=== PATIENT | male | born 1985 | race African-American/Black ===

== ENCOUNTER 2019-10-11 10:02 | Emergency (ER) | payer SELFPAY ==
[~2019-10-11] VITALS: Ht 190.5 cm; Wt 90.7 kg
[2019-10-11] MEDS ORDERED: SODIUM CHLORIDE 0.9% 1,000 ML IV ONE ×2 (10:53)
[2019-10-11] MEDS ORDERED: PROCHLORPERAZINE EDISYLATE 5 MG/ML 2ML VIAL IV ONE (11:00)
[2019-10-11 11:42] LABS: Basophils # (auto) 0 uL; Basophils % (auto) 0.8 % (0.0-2.0); Eosinophils # (auto) 0 uL; Eosinophils % (auto) 0.3 % (0.0-7.0); Hematocrit 44.8 % (41.0-53.0); Hemoglobin 15.6 g/dL (13.5-17.5); Lymphocytes # (auto) 0.8 uL; Lymphocytes % (auto) 21.9 % (10.0-50.0); Mean Corpuscular Hemoglobin 32.1 pg (28.0-32.0); Mean Corpuscular Hgb Conc. 34.8 g/dL (32.0-36.0); Mean Corpuscular Volume 92.1 fL (80.0-100.0); Monocytes # (auto) 0.3 uL; Monocytes % (auto) 9.1 % (0.0-12.0); Neutrophils # (auto) 2.6 uL; Neutrophils % (auto) 67.9 % (37.0-80.0); Nucleated Red Blood Cells % 0.2 %; Platelet Count (auto) 172 10^3/uL (140-450); Red Blood Cells 4.86 10^6/uL (4.5-5.90); Red Cell Distribution Width 13.6 % (11.8-14.3); White Blood Cell 3.8 10^3/uL (4.4-10.8)
[2019-10-11 12:04] LABS: Potassium 4.1 mmol/L (3.5-5.1)
[2019-10-11 12:13] LABS: Albumin 4.4 g/dL (3.4-5.0); BUN/Creatinine Ratio 5.5; Bilirubin, Total 1.8 mg/dL (0.2-1.0); Calcium 9.2 mg/dL (8.5-10.1)
[2019-10-11 14:07] VITALS: BP 130/64
== END 2019-10-11 14:24 | disposition home or self-care (01) ==
LOC: ER 10:02
DX: R11.2 Nausea with vomiting, unspecified (principal); F12.10 Cannabis abuse, uncomplicated; F17.210 Nicotine dependence, cigarettes, uncomplicated
CPT/HCPCS: 36415; 80053; 85025; 96361; 96374; 99283; J0780

== ENCOUNTER 2025-04-26 12:41 | Inpatient (IN) | payer MEDICAID, OTHER ==
[~2025-04-26] VITALS: Ht 182.9 cm; Wt 94.1 kg
[2025-04-26] MEDS: SODIUM CHLORIDE 0.9% 1,000 ML IV ONE ×3 (12:45→19:15)
--- NOTE | 2025-04-26 12:59 | ED.PDOC ---
HPI (NEURO) HPI Comments HPI: This is a 39 year old male EMMANUELA presenting to the ED with chief complaint of seizure. EMS reports that the patient was found on the ground seizing by nephews and mother. EMS relays that the patient had some noted oral trauma and now left sided neck pain. EMS states that the patient has no history of seizures and is not currently on any medication. Patient's BG on scene was 98. Patient denies any chest pain, SOB, head injury, N/V, headache, or dizziness. Initial Vitals BP: 144/82 HR: 84 RR: 20 O2 Sat: 100% on RA Temp: 98.6F Past Medical history: None Past Surgical history: None Medications: None Social History: Cigarette use, occasional ETOH use, Marijuana use Allergies: NKDA HPI: Poor Historian. Patient arrived without a C-collar. I placed him in a C-collar immediately. REVIEW OF SYSTEMS: CONSTITUTIONAL: Denies acute: fever, diaphoresis, chills, HEAD: Denies acute: headache, photophobia Eyes: Denies acute: Double vision, vision loss, eye pain, eye discharge. EARS: Denies acute: tinnitus, hearing loss, ear discharge, ear pain, THROAT: Denies acute: sore throat, swelling, difficulty swallowing , pain with swallowing, change in voice. NECK: Denies acute: neck swelling, stiff neck. HEART: Denies acute : chest pain, palpitations, LUNGS: Denies acute: SOB, wheezing, cough, hemoptysis ABDOMEN: Denies acute: abdominal pain, Nausea, Vomiting, diarrhea, melena , hematemesis, hematochezia SKIN: Denies acute: rash, redness, lesions, itchiness. EXTREMITIES: Denies acute: calf pain, numbness, tingling, weakness, denies pain in extremity. Denies acute: Low back pain. Neuro: Denies acute: focal neurological deficit, motor or sensory focal neurological deficit, dizziness, change in mental status, loss of bowel or bladder function, cauda equina like symptoms. : Denies acute: dysuria, hematuria, flank pain, increase in urinary frequency. PSYCH: Denies acute: hallucination, suicidal ideation, homicidal ideation. PHYSICAL EXAM: General: ----qqhe-ah-oawxcjat----acute distress, awake and alert. Head: normocephalic, atraumatic. Neck: supple, trachea is midline, no swelling. Patient complains of left neck soreness and pain from the fall. Started this morning. Throat: Normal phonation. Noted tip of the tongue contusion. No active bleeding. No erythema, no swelling, no obstruction. Eyes:, no erythema, no purulent discharge, no proptosis, no icterus. Heart: regular rate, regular rhythm, no significant murmur appreciated. Lungs: no apparent respiratory distress, Able to speak in full sentences. No wheezing, no rhonchi, no crackles. No stridors Clear to auscultation bilaterally. Abdomen: non tender to palpation, non distended, soft, no guarding, no rebound, + bowel sounds. Neuro: Awake, Alert, oriented to name, self, situation, follows commands GCS=15. Speech is normal. Skin: no petechia, no purpura, no cyanosis, non-pale, not jaundice. Lower extremities: --no - Pitting edema no deformity, no focal swelling, no calf TTP. Makes eye contact. moves all four extremities. Face: no apparent facial droop. PERRLA, EOM-I CN 2-12 are grossly intact, No nystagmus. No nuchal rigidity, Kernig's sign, Brudzinski's sign, no meningeal signs. ED COURSE: DISCLAIMER: This medical document was created using an electronic medical record system with voice recognition software and computerized dictation system. Although this document has been carefully reviewed, there might still be some phonetic and typographical errors. Occasional wrong-word or "sound-alike" substitutions may have occurred due to the inherent limitations of voice recognition software. These areas are purely typographical due to imperfections of the software programs and do not reflect any compromise in the patient's medical care. Please read the chart carefully and recognize, using context, where these substitutions have occurred. Time Seen by MD: 12:48 Primary Care Provider: unknown Reviewed Notes: Medications, Allergies Information Source: Patient, Emergency Med Personnel Mode of Arrival: EMS Was a procedure done? Was a procedure done?: No Differential Diagnosis (SZ) Seizure: Other (SEIZUREDDX include not limited to CVA, cerebellar ischemia/infarct, carotid stenosis, vertebral/carotid artery dissection,, sanchez tebrobasillary insufficiency, Intracranial mass/infection/bleed, encephalopathy, elctrolyte abnormality, thyroid disease, multiple sclerosis, hypoglycemia, drug toxicity, cardiac arrhythmia, sub-theraputic anti-convulsion medications, known seizure disorder, pseudo-seizure.) X-Ray, Labs, Meds, VS Vital Signs Date Time Temp Pulse Resp B/P (MAP) Pulse Ox O2 Delivery O2 Flow Rate FiO2 04/26/25 14:07 97.5 57 16 123/66 (85) 100 97.5 04/26/25 14:07 57 16 100 Room Air* 0 21 04/26/25 13:21 98.6 84 20 144/82 (102) 100 98.6 Lab Test 04/26/25 13:39 04/26/25 12:56 Range/Units Troponin I High Sensitivity 22 22 </=54 ng/L White Blood Count 5.6 4.4-10.8 10^3/uL Red Blood Count 5.01 4.5-5.90 10^6/uL Hemoglobin 15.5 13.5-17.5 g/dL Hematocrit 46.7 41.0-53.0 % Mean Corpuscular Volume 93.3 80.0-100.0 fL Mean Corpuscular Hemoglobin 31.0 28.0-32.0 pg Mean Corpuscular Hemoglobin Concent 33.2 32.0-36.0 g/dL Red Cell Distribution Width 14.4 H 11.8-14.3 % Platelet Count 273 140-450 10^3/uL Mean Platelet Volume 8.3 6.9-10.8 fL Neutrophils (%) (Auto) 37.0-80.0 % Lymphocytes (%) (Auto) 10.0-50.0 % Monocytes (%) (Auto) 0.0-12.0 % Basophils (%) (Auto) 0.0-2.0 % Neutrophils # (Auto) 1.6-8.6 10 ^3/uL Lymphocytes # (Auto) 0.4-5.4 10 ^3/uL Monocytes # (Auto) 0-1.3 10 ^3/uL Differential Total Cells Counted 100.0 100 Neutrophils % (Manual) 29 L 37.0-80.0 Band Neutrophils % (Manual) 0 Lymphocytes % (Manual) 55 H 10.0-50.0 Monocytes % (Manual) 8 0-12 Eosinophils % (Manual) 3 0-7 Basophils % (Manual) 0 0.0-2.0 Metamyelocytes % (manual) 0 Myelocytes % (Manual) 0 Promyelocytes % (Manual) 0 Blast Cells % (Manual) 0 Reactive Lymphocytes 5 Platelet Estimate Adequate Red Blood Cell Morphology Normal Sodium Level 137 136-145 mmol/L Potassium Level 4.3 3.5-5.1 mmol/L Chloride Level 104 98-107 mmol/L Carbon Dioxide Level 21 20-31 mmol/L Anion Gap 12 5-15 Blood Urea Nitrogen 10 9-23 mg/dL Creatinine 1.32 H 0.700-1.30 mg/dL Glomerular Filtration Rate Calc 71 >90 mL/min BUN/Creatinine Ratio 7.6 L 10.0-20.0 Serum Glucose 130 H 74-106 mg/dL Lactic Acid Level 7.3 *H 0.4-2.0 mmol/L Calcium Level 10.0 8.7-10.4 mg/dL Magnesium Level 2.6 1.6-2.6 mg/dL Total Bilirubin 1.7 H 0.2-1.0 mg/dL Aspartate Amino Transferase (AST) 22 13-40 U/L Alanine Aminotransferase (ALT) 19 7-40 U/L Alkaline Phosphatase 70 46-116 U/L Creatine Kinase 296 H 46-171 U/L Total Protein 7.6 5.7-8.2 g/dL Albumin 4.9 H 3.2-4.8 g/dL Plasma/Serum Blood Alcohol < 3.0 <10 mg/dL [place] [id number] Ph: [phone] DIAGNOSTIC IMAGING Diagnostic Imaging Report : [id number] Signed PATIENT: MO MIMS ACCT: [id number] UNIT: [id number] : 1985 LOC: ER ROOM / BED: / AGE / SEX: 39 / M ADM STATUS: REG ER SERVICE 1244 ORDERING PHYSICIAN: OTONIEL VENEGAS DO PROCEDURE(s): CS2 - CERVICAL WITHOUT CONTRAST REASON: seizure ORDER NUMBER(s): [id number], ACCESSION NUMBER(s): [id number] EXAM: CT CERVICAL WITHOUT CONTRAST INDICATION: seizure EXAM DATE: 04/26/2025 01:09 PM COMPARISON: None TECHNIQUE: Multiple axial CT images of the cervical spine were obtained using bone algorithm. Axial and coronal reformatting was done. Bone and soft tissue windows were reviewed. Radiation Dose Information: CT Dose: CTDI volume is 22.58 mGy. Dose-length product is 1956.69 mGy*cm FINDINGS: 7 zar-tmo-wpgsobk cervical type vertebra. Motion artifact limits evaluation of the spinous processes of C7 and T1. Otherwise, no evidence of acute traumatic fractures or spondylolisthesis. Multilevel oral spinal canal stenosis with calcification of the Posterior disc and C4-C5 and C5-C6. Qlfh-st-wpupbbwf left-sided neural foramina stenosis at C3-C4 and C4-C5. Soft tissues unremarkable. Thyroid gland is unremarkable. The lung apices are clear. IMPRESSION: Motion artifact limits evaluation of the spinous processes of C7 and TOtherwise, No evidence of acute cervical spine fracture or traumatic malalignment. All CT scans at this medical facility are performed using dose modulation techniques as appropriate to a performed exam including the following: Automated exposure control was utilized; adjustment of the MA and/or KV according to patient size; and use of iterative reconstruction technique. ATED BY: CHARLOTTE FRAZIER DO DICTATED DATE/TIME: 04/26/251354 SIGNED BY: CHARLOTTE FRAZIER DO SIGNED DATE/TIME: 04/26/251354 CC: [place] [id number] Ph: [phone] DIAGNOSTIC IMAGING Diagnostic Imaging Report : [id number] Signed PATIENT: MO MIMS ACCT: [id number] UNIT: [id number] : 1985 LOC: ER ROOM / BED: / AGE / SEX: 39 / M ADM STATUS: REG ER SERVICE 1244 ORDERING PHYSICIAN: OTONIEL VENEGAS DO PROCEDURE(s): HWOCT - HEAD WITHOUT CONTRAST REASON: seizure ORDER NUMBER(s): [id number], ACCESSION NUMBER(s): [id number] EXAM: CT HEAD WITHOUT CONTRAST INDICATION: seizure TECHNIQUE: CT of the head without intravenous contrast. Radiation Dose : 1. Head: CT Dose: CTDI volume is 23 mGy. Dose-length product is 1957 mGy*cm The dose indicators for CT are the volume Computed Tomography (CT) Dose Index (CTDIvol) and the Dose Length Product (DLP), and are measured in units of mGy and mGy-cm, respectively. These indicators are not patient dose, but values generated from the CT scanner acquisition factors. The report includes radiation exposure data for exposures received during this examination. COMPARISON: None FINDINGS: There is no evidence of acute intracranial hemorrhage, extra-axial collection, mass effect, midline shift, herniation or hydrocephalus. The ventricles, sulci and cisterns are age appropriate. The lanza-white differentiation is intact. Patchy periventricular and subcortical white matter hypoattenuation is nonspecific but may be related to small vessel ischemic disease. The visualized paranasal sinuses and mastoid air cells are clear. The surrounding soft tissues and osseous structures are unremarkable. IMPRESSION: 1. No acute intracranial abnormality. Radiation optimization: All CT scans at this facility use at least one of these dose optimization techniques: automated exposure control mA and/or kV adjustment per patient size (includes targeted exams where dose is matched to clinical indication) or iterative reconstruction. ATED BY: TIERA ELAINE MD DICTATED DATE/TIME: 04/26/251337 SIGNED BY: TIERA ELAINE MD SIGNED DATE/TIME: 04/26/251337 CC: [place] [id number] Ph: [phone] DIAGNOSTIC IMAGING Diagnostic Imaging Report : [id number] Signed PATIENT: MO MIMS ACCT: [id number] UNIT: [id number] : 1985 LOC: ER ROOM / BED: / AGE / SEX: 39 / M ADM STATUS: REG ER SERVICE 1244 ORDERING PHYSICIAN: OTONIEL VENEGAS DO PROCEDURE(s): CXRP - CHEST PORTABLE REASON: seizure ORDER NUMBER(s): [id number], ACCESSION NUMBER(s): [id number] INDICATION: seizure TECHNIQUE: Frontal view of the chest. COMPARISON: None FINDINGS: . The heart and mediastinal contours are grossly unremarkable. There is no evidence of pleural disease. The lungs are clear. The bony structures of the chest are intact without fracture. IMPRESSION: 1. No evidence of acute disease. ATED BY: KAYLEE BATES MD DICTATED DATE/TIME: 04/26/25 1340 SIGNED BY: KAYLEE BATES MD SIGNED DATE/TIME: 04/26/25 1340 CC: Time of 1ST Reevaluation: 13:48 Reevaluation 1ST: Unchanged Patient Education/Counseling: Diagnosis, Treatment Family Education/Counseling: No Family Present Comments Patient was placed on a C-collar. MDM: patient presented with the above HPI.--new onset seizure---workup was initiated. patient was found with the above mentioned diagnosis. the following medications were ordered: please refer to order lists of meds and tests obtained by myself Dr. Venegas. Patient ED course and VS have been stabilized. Patient has been reassessed in the ED and remained in a stable condition. Pertinent incidental findings were discussed with the patient and/or family. Patient/family voices understanding and is agreeable with plan. Patient has been observed in the ED adequate length of time to insure improvement/stability. Escalation of care considered: Consideration of escalation to observation or admission Patient was ADMITTED to the medicine team for further evaluation and treatment of their presentation. All the reports of any imaging studies that were ordered by myself were reviewed by myself. Departure 1 Departure Time of Disposition: 14:09 Impression: Primary Impression: Seizure Additional Impression: Neck pain Disposition: 09 ADMITTED INPATIENT Admit to: Tele Condition: Guarded e-Prescriptions No Active Prescriptions or Reported Meds Discharged With: Self Critical Care Note Critical Care Time?: Yes (45 min-critical care time only) I personally scribed for OTONIEL VENEGAS DO ([email or web address]) on 04/26/25 at 12:59. Electronically submitted by Joaquin Chavez ([email or web address]). I personally scribed for OTONIEL VENEGAS DO ([email or web address]) on 04/26/25 at 14:37. Electronically submitted by Joaquin Chavez ([email or web address]). OTONIEL VENEGAS DO Apr 26, 2025 12:59
[2025-04-26 13:23] LABS: Hematocrit 46.7 % (41.0-53.0); Hemoglobin 15.5 g/dL (13.5-17.5); Mean Corpuscular Hemoglobin 31.0 pg (28.0-32.0); Mean Corpuscular Volume 93.3 fL (80.0-100.0)
[2025-04-26 13:38] LABS: Alanine Aminotransferase 19 U/L (7-40); Alkaline Phosphatase 70 U/L (46-116); Anion Gap 12 (5-15); BUN/Creatinine Ratio 7.6 (10.0-20.0); Blood Urea Nitrogen 10 mg/dL (9-23); Calcium 10.0 mg/dL (8.7-10.4); Carbon Dioxide 21 mmol/L (20-31); Chloride 104 mmol/L (98-107); Magnesium 2.6 mg/dL (1.6-2.6); Potassium 4.3 mmol/L (3.5-5.1); Sodium 137 mmol/L (136-145); Total Protein 7.6 g/dL (5.7-8.2)
[2025-04-26 13:41] LABS: Albumin 4.9 g/dL (3.2-4.8); Bilirubin, Total 1.7 mg/dL (0.2-1.0); Creatine Kinase IFCC 296 U/L (46-171); Glucose 130 mg/dL (74-106)
--- NOTE | 2025-04-26 13:41 | DVH ---
EXAM: CT HEAD WITHOUT CONTRAST INDICATION: seizure TECHNIQUE: CT of the head without intravenous contrast. Radiation Dose : 1. Head: CT Dose: CTDI volume is 23 mGy. Dose-length product is 1957 mGy*cm The dose indicators for CT are the volume Computed Tomography (CT) Dose Index (CTDIvol) and the Dose Length Product (DLP), and are measured in units of mGy and mGy-cm, respectively. These indicators are not patient dose, but values generated from the CT scanner acquisition factors. The report includes radiation exposure data for exposures received during this examination. COMPARISON: None FINDINGS: There is no evidence of acute intracranial hemorrhage, extra-axial collection, mass effect, midline s hift, herniation or hydrocephalus. The ventricles, sulci and cisterns are age appropriate. The lanza-white differentiation is intact. Patchy periventricular and subcortical white matter hypoattenuation is nonspecific but may be related to small vessel ischemic disease. The visualized paranasal sinuses and mastoid air cells are clear. The surrounding soft tissues and osseous structures are unremarkable. IMPRESSION: 1. No acute intracranial abnormality. Radiation optimization: All CT scans at this facility use at least one of these dose optimization joslyn hniques: automated exposure control mA and/or kV adjustment per patient size (includes targeted exam s where dose is matched to clinical indication) or iterative reconstruction.
--- NOTE | 2025-04-26 13:42 | DVH ---
INDICATION: seizure TECHNIQUE: Frontal view of the chest. COMPARISON: None FINDINGS: . The heart and mediastinal contours are grossly unremarkable. There is no evidence of pleural disea se. The lungs are clear. The bony structures of the chest are intact without fracture. IMPRESSION: 1. No evidence of acute disease.
[2025-04-26 13:58] LABS: Lactic Acid w/Reflex 7.3 mmol/L (0.4-2.0)
--- NOTE | 2025-04-26 13:58 | DVH ---
EXAM: CT CERVICAL WITHOUT CONTRAST INDICATION: seizure EXAM DATE: 04/26/2025 01:09 PM COMPARISON: None TECHNIQUE: Multiple axial CT images of the cervical spine were obtained using bone algorithm. Axial a nd coronal reformatting was done. Bone and soft tissue windows were reviewed. Radiation Dose Information: CT Dose: CTDI volume is 22.58 mGy. Dose-length product is 1956.69 mGy*cm FINDINGS: 7 aju-hfe-bmfcoau cervical type vertebra. Motion artifact limits evaluation of the spinous processes of C7 and T1. Otherwise, no evidence of acute traumatic fractures or spondylolisthesis. Multilevel oral spinal canal stenosis with calcification of the Posterior disc and C4-C5 and C5-C6. Kewi-yw-fsnzfvtd left-sided neural foramina stenosis at C3-C4 and C4-C5. Soft tissues unremarkable. Thyroid gland is unremarkable. The lung apices are clear. IMPRESSION: Motion artifact limits evaluation of the spinous processes of C7 and TOtherwise, No evidence of acute cervical spine fracture or traumatic malalignment. All CT scans at this medical facility are performed using dose modulation techniques as appropriate t o a performed exam including the following: Automated exposure control was utilized; adjustment of th e MA and/or KV according to patient size; and use of iterative reconstruction technique.
[2025-04-26 14:07] VITALS: PULSE 57; RESP 16; O2SAT 100
[2025-04-26 14:22] LABS: Total Cells Counted 100.0 (100)
[2025-04-26 14:23] LABS: RBC Morphology Normal
[2025-04-26] MEDS ORDERED: LORazepam 2MG/ML-1ML VIAL IV PRN (14:45)
[2025-04-26] MEDS: HYDROcodone-ACET 5/325MG TAB PO PRN (15:18)
[2025-04-26] MEDS: ACETAMINOPHEN 325 MG TAB PO PRN (16:20)
[2025-04-26 18:32] VITALS: BP 110/66; PULSE 60; RESP 16; TEMP 97.9; O2SAT 99
--- NOTE | 2025-04-26 19:13 | DVHHP2 ---
History of Present Illness Reason for Visit: Seizure activity History of Present Illness 39-year-old male presents for evaluation of seizure activity. Patient is currently lethargic oriented x4. He does not recall how he ended up in the hospital. Per ED records and personnel patient was found seizing by his mother and nephews. There is some mild oral trauma. Patient reports mild neck pain. No headache. No cardiac or respiratory complaints. Past Medical History None Past Surgical History None Family History Noncontributory Smoke: 1 pack per day ALCOHOL: none Lives: with Family Review of Systems Review of Systems Review of systems are currently negative otherwise addressed in HPI. Allergies: Coded Allergies: NO KNOWN ALLERGIES (Unverified , 10/11/19) Medications Current Medications Medications Dose Ordered Sig/Luis Armando Route Start Time Stop Time Status Last Admin Dose Admin Lorazepam 1 mg Q5MINP PRN IV 04/26/25 14:45 Acetaminophen/ Hydrocodone Bitart 1 tab Q4HP PRN PO 04/26/25 14:45 Temazepam 15 mg QHSP PRN PO 04/26/25 14:45 Ondansetron HCl 4 mg Q4HP PRN IV 04/26/25 14:45 Acetaminophen 650 mg Q6HP PRN PO 04/26/25 14:45 04/26/25 16:20 650 MG Exam Vital Signs Vital Signs Date Time Temp Pulse Resp B/P (MAP) Pulse Ox O2 Delivery O2 Flow Rate FiO2 04/26/25 14:07 97.5 57 16 123/66 (85) 100 97.5 04/26/25 14:07 Room Air* 0 21 Exam Gen: 39-year-old male in no apparent distress Skin: Warm, dry, normal color and texture, no rash. HEENT: Normocephalic atraumatic, mucous membranes moist and pink. Neck: Cervical and supraclavicular nodes normal without enlargement, trachea is midline, thyroid gland is normal without masses. Pulmonary: Clear to auscultation and percussion bilaterally. Cardiac: Regular rate and rhythm. No murmur Abdomen: Soft, nontender, nondistended, bowel sounds present all 4 quadrants, no guarding, no rigidity, no organomegaly. Extremities: No cyanosis, clubbing, no edema Neuro: Cranial nerves II through XII grossly intact, normal affect and speech, no focal motor deficits. Labs/Xrays ORDERING PHYSICIAN: OTONIEL VENEGAS DO PROCEDURE(s): CS2 - CERVICAL WITHOUT CONTRAST REASON: seizure ORDER NUMBER(s): [id number], ACCESSION NUMBER(s): [id number] EXAM: CT CERVICAL WITHOUT CONTRAST INDICATION: seizure EXAM DATE: 04/26/2025 01:09 PM COMPARISON: None TECHNIQUE: Multiple axial CT images of the cervical spine were obtained using bone algorithm. Axial and coronal reformatting was done. Bone and soft tissue windows were reviewed. Radiation Dose Information: CT Dose: CTDI volume is 22.58 mGy. Dose-length product is 1956.69 mGy*cm FINDINGS: 7 [id number] cervical type vertebra. Motion artifact limits evaluation of the spinous processes of C7 and T1. Otherwise, no evidence of acute traumatic fractures or spondylolisthesis. Multilevel oral spinal canal stenosis with calcification of the Posterior disc and C4-C5 and C5-C6. [id number] left-sided neural foramina stenosis at C3-C4 and C4-C5. Soft tissues unremarkable. Thyroid gland is unremarkable. The lung apices are clear. IMPRESSION: Motion artifact limits evaluation of the spinous processes of C7 and TOtherwise, No evidence of acute cervical spine fracture or traumatic malalignment. All CT scans at this medical facility are performed using dose modulation techniques as appropriate to a performed exam including the following: Automated exposure control was utilized; adjustment of the MA and/or KV according to patient size; and use of iterative reconstruction technique. ATED BY: CHARLOTTE FRAZIER DO DICTATED DATE/TIME: 04/26/25 1355 ORDERING PHYSICIAN: OTONIEL VENEGAS DO PROCEDURE(s): CXRP - CHEST PORTABLE REASON: seizure ORDER NUMBER(s): [id number], ACCESSION NUMBER(s): [id number] INDICATION: seizure TECHNIQUE: Frontal view of the chest. COMPARISON: None FINDINGS: . The heart and mediastinal contours are grossly unremarkable. There is no evidence of pleural disease. The lungs are clear. The bony structures of the chest are intact without fracture. IMPRESSION: 1. No evidence of acute disease. RING PHYSICIAN: OTONIEL VENEGAS DO PROCEDURE(s): HWOCT - HEAD WITHOUT CONTRAST REASON: seizure ORDER NUMBER(s): [id number], ACCESSION NUMBER(s): [id number] EXAM: CT HEAD WITHOUT CONTRAST INDICATION: seizure TECHNIQUE: CT of the head without intravenous contrast. Radiation Dose : 1. Head: CT Dose: CTDI volume is 23 mGy. Dose-length product is 1957 mGy*cm The dose indicators for CT are the volume Computed Tomography (CT) Dose Index (CTDIvol) and the Dose Length Product (DLP), and are measured in units of mGy and mGy-cm, respectively. These indicators are not patient dose, but values generated from the CT scanner acquisition factors. The report includes radiation exposure data for exposures received during this examination. COMPARISON: None FINDINGS: There is no evidence of acute intracranial hemorrhage, extra-axial collection, mass effect, midline shift, herniation or hydrocephalus. The ventricles, sulci and cisterns are age appropriate. The lanza-white differentiation is intact. Patchy periventricular and subcortical white matter hypoattenuation is nonspecific but may be related to small vessel ischemic disease. The visualized paranasal sinuses and mastoid air cells are clear. The surrounding soft tissues and osseous structures are unremarkable. IMPRESSION: 1. No acute intracranial abnormality. Radiation optimization: All CT scans at this facility use at least one of these dose optimization techniques: automated exposure control mA and/or kV adjustment per patient size (includes targeted exams where dose is matched to clinical indication) or iterative reconstruction. Labs Test 04/26/25 15:45 04/26/25 12:56 Range/Units Lactic Acid Level 3.4 *H 0.4-2.0 mmol/L Troponin I High Sensitivity 25 </=54 ng/L White Blood Count 5.6 4.4-10.8 10^3/uL Red Blood Count 5.01 4.5-5.90 10^6/uL Hemoglobin 15.5 13.5-17.5 g/dL Hematocrit 46.7 41.0-53.0 % Mean Corpuscular Volume 93.3 80.0-100.0 fL Mean Corpuscular Hemoglobin 31.0 28.0-32.0 pg Mean Corpuscular Hemoglobin Concent 33.2 32.0-36.0 g/dL Red Cell Distribution Width 14.4 H 11.8-14.3 % Platelet Count 273 140-450 10^3/uL Mean Platelet Volume 8.3 6.9-10.8 fL Neutrophils (%) (Auto) 37.0-80.0 % Lymphocytes (%) (Auto) 10.0-50.0 % Monocytes (%) (Auto) 0.0-12.0 % Basophils (%) (Auto) 0.0-2.0 % Neutrophils # (Auto) 1.6-8.6 10 ^3/uL Lymphocytes # (Auto) 0.4-5.4 10 ^3/uL Monocytes # (Auto) 0-1.3 10 ^3/uL Differential Total Cells Counted 100.0 100 Neutrophils % (Manual) 29 L 37.0-80.0 Band Neutrophils % (Manual) 0 Lymphocytes % (Manual) 55 H 10.0-50.0 Monocytes % (Manual) 8 0-12 Eosinophils % (Manual) 3 0-7 Basophils % (Manual) 0 0.0-2.0 Metamyelocytes % (manual) 0 Myelocytes % (Manual) 0 Promyelocytes % (Manual) 0 Blast Cells % (Manual) 0 Reactive Lymphocytes 5 Platelet Estimate Adequate Red Blood Cell Morphology Normal Sodium Level 137 136-145 mmol/L Potassium Level 4.3 3.5-5.1 mmol/L Chloride Level 104 98-107 mmol/L Carbon Dioxide Level 21 20-31 mmol/L Anion Gap 12 5-15 Blood Urea Nitrogen 10 9-23 mg/dL Creatinine 1.32 H 0.700-1.30 mg/dL Glomerular Filtration Rate Calc 71 >90 mL/min BUN/Creatinine Ratio 7.6 L 10.0-20.0 Serum Glucose 130 H 74-106 mg/dL Calcium Level 10.0 8.7-10.4 mg/dL Magnesium Level 2.6 1.6-2.6 mg/dL Total Bilirubin 1.7 H 0.2-1.0 mg/dL Aspartate Amino Transferase (AST) 22 13-40 U/L Alanine Aminotransferase (ALT) 19 7-40 U/L Alkaline Phosphatase 70 46-116 U/L Creatine Kinase 296 H 46-171 U/L Total Protein 7.6 5.7-8.2 g/dL Albumin 4.9 H 3.2-4.8 g/dL Plasma/Serum Blood Alcohol < 3.0 <10 mg/dL SEPSIS Sepsis Screen Date sepsis recognized/suspect: Apr 26, 2025 Time Sepsis recognized/suspect: 1406 Recent Procedure: No On Antibiotic Therapy: No Respiratory Rate >20: No Heart Rate >90: No Temp<36 C (96.8 F) or >38.3 C: No SBP <90 or MAP <65 mmHG: No New Acute Mental Status Change: No Is the patient on CPAP, BIPAP,: No Physician Orders [employer] (04/26/25 ) Seizure Precautions (04/26/25 ) Drug Screen (04/26/25 12:44) Urinalysis (04/26/25 12:44) Chest Portable (04/26/25 12:44) Electrocardigram (04/26/25 12:44) Cervical Without Contrast (04/26/25 12:44) Head Without Contrast (04/26/25 12:44) Apply Soft Cervical Collar (04/26/25 12:44) Seizure Precautions (04/26/25 ) * Neurology Consult (04/26/25 14:42) Lorazepam 2mg/Ml Inj (Ativan Inj) (04/26/25 14:45) Regular Diet (04/26/25 Dinner) Admit (04/26/25 14:42) Hydrocodone-Acet 5/325mg Tab (Story (04/26/25 14:45) Temazepam (Restoril) (04/26/25 14:45) Ondansetron Hcl (Zofran) (04/26/25 14:45) Comprehensive Metabolic Panel (04/27/25 04:00) Condition: Stable (04/26/25 14:42) Acetaminophen Tablet (Tylenol Tablet) (04/26/25 14:45) Bedrest With Bathroom Privileg (04/26/25 14:42) Vital Signs Date Time Temp Pulse Resp B/P (MAP) Pulse Ox O2 Delivery O2 Flow Rate FiO2 04/26/25 14:07 97.5 57 16 123/66 (85) 100 97.5 04/26/25 14:07 57 16 100 Room Air* 0 21 04/26/25 13:21 98.6 84 20 144/82 (102) 100 98.6 Laboratory Tests Test 04/26/25 12:56 04/26/25 15:45 Lactic Acid Level 7.3 mmol/L (0.4-2.0) *H 3.4 mmol/L (0.4-2.0) *H White Blood Count 5.6 10^3/uL (4.4-10.8) Medications Medications Dose Ordered Sig/Luis Armando Route Start Time Stop Time Status Last Admin Dose Admin Acetaminophen 650 mg Q6HP PRN PO 04/26/25 14:45 04/26/25 16:20 650 MG Sodium Chloride 1,000 ml @ 1,000 mls/hr Q1H ONCE IV 04/26/25 12:45 04/26/25 13:44 DC 04/26/25 12:45 1,000 MLS/HR Sodium Chloride 1,000 ml @ 1,000 mls/hr Q1H ONCE IV 04/26/25 14:45 04/26/25 15:44 DC 04/26/25 15:18 1,000 MLS/HR Assessment/Plan Assessment/Plan Assessment Seizure activity, new onset Acute kidney injury ? Early rhabdomyolysis Plan Admit the patient to [facility] to the hospitalist Seizure precautions in place Nephrology consultation IV fluids Continue treatment per orders. Plan discussed with: Patient My Orders Orders - TRAMAINE ALEGRIA Procedure Category Date Status Time Seizure Precautions ED NURSING 04/26/25 Transmitted * Neurology Consult CONS 04/26/25 Transmitted 14:42 Lorazepam 2mg/Ml Inj PHA 04/26/25 In Process (Ativan Inj) 14:45 Regular Diet DIET 04/26/25 Transmitted Dinner Admit ADMIT 04/26/25 Transmitted 14:42 Hydrocodone-Acet PHA 04/26/25 In Process 5/325mg Tab (Story 14:45 Temazepam (Restoril) PHA 04/26/25 In Process 14:45 Ondansetron Hcl PHA 04/26/25 In Process (Zofran) 14:45 Comprehensive LAB 04/27/25 Verified Metabolic Panel 04:00 Condition: Stable YEYO 04/26/25 In Process 14:42 Acetaminophen Tablet PHA 04/26/25 In Process (Tylenol Tablet) 14:45 Bedrest With Bathroom YEYO 04/26/25 In Process Privileg 14:42 Date of Service: Apr 26, 2025 Billing Provider: TRAMAINE ALEGRIA Common Visit Codes: [id number] INP/OBS CARE (HIGH) TRAMAINE ALEGRIA [facility] Apr 26, 2025 19:13
[2025-04-26 20:00] VITALS: PULSE 60; PULSE 68; RESP 18; O2SAT 99
[2025-04-26 21:00] VITALS: BP 104/61; PULSE 60; RESP 18; O2SAT 99
[2025-04-26] MEDS: ONDANSETRON HCL 4 MG/2 ML VIAL IV PRN (21:06)
[2025-04-26] MEDS: TEMAZEPAM 15 MG CAP PO PRN (21:23)
[2025-04-27] VITALS (9 sets, daily range): BP systolic 107–126; BP diastolic 57–73; PULSE 21–77; RESP 16–18; TEMP 96.8–98.5; O2SAT 94–100
[2025-04-27 07:30] LABS: Alanine Aminotransferase 16 U/L (7-40); Alkaline Phosphatase 63 U/L (46-116); Anion Gap 9 (5-15); BUN/Creatinine Ratio 6.3 (10.0-20.0); Calcium 8.8 mg/dL (8.7-10.4); Carbon Dioxide 22 mmol/L (20-31); Glucose 95 mg/dL (74-106); Potassium 4.2 mmol/L (3.5-5.1); Sodium 138 mmol/L (136-145)
[2025-04-27 07:31] LABS: Total Protein 6.5 g/dL (5.7-8.2)
[2025-04-27 07:32] LABS: Albumin 4.1 g/dL (3.2-4.8)
[2025-04-27 07:35] LABS: Bilirubin, Total 2.5 mg/dL (0.2-1.0); Blood Urea Nitrogen 6 mg/dL (9-23); Chloride 107 mmol/L (98-107)
--- NOTE | 2025-04-27 13:20 | DVHPN2 ---
Reviewed: Care Plan, H&P, Labs, Medications, Previous Orders, Radiology Changes from previous H/P or p: No Changes Objective Vitals Vital Signs Date Time Temp Pulse Resp B/P (MAP) Pulse Ox O2 Delivery O2 Flow Rate FiO2 04/27/25 09:00 97.8 65 18 109/65 (80) 98 97.8 04/27/25 08:00 Room Air* 0 21 Intake/Output Intake and Output 04/27/25 07:00 Intake Total 2605 ml Balance 2605 ml Intake Oral 605 ml IV Total 2000 ml Medications Current Medications Medications Dose Ordered Sig/Luis Armando Route Start Time Stop Time Status Last Admin Dose Admin Lorazepam 1 mg Q5MINP PRN IV 04/26/25 14:45 Acetaminophen/ Hydrocodone Bitart 1 tab Q4HP PRN PO 04/26/25 14:45 Temazepam 15 mg QHSP PRN PO 04/26/25 14:45 04/26/25 21:23 15 MG Ondansetron HCl 4 mg Q4HP PRN IV 04/26/25 14:45 04/26/25 21:06 4 MG Acetaminophen 650 mg Q6HP PRN PO 04/26/25 14:45 04/27/25 12:35 650 MG Laboratory Results Laboratory Tests 04/26/25 12:56 04/27/25 06:27 Chemistry Test 04/27/25 06:27 Albumin 4.1 g/dL (3.2-4.8) Calcium Level 8.8 mg/dL (8.7-10.4) Total Protein 6.5 g/dL (5.7-8.2) LFT Test 04/27/25 06:27 Alanine Aminotransferase (ALT) 16 U/L (7-40) Alkaline Phosphatase 63 U/L (46-116) Aspartate Amino Transferase (AST) 36 U/L (13-40) Total Bilirubin 2.5 mg/dL (0.2-1.0) H Labs and/or images reviewed: Labs reviewed by me, Image(s) reviewed by me Assessment/Plan Assessment/Plan New onset seizure: Ativan p.r.n., Neurology consult by Dr. Evans Chest x-ray negative CT head negative C-spine CT negative Blood alcohol neg We will check urine drug screen Plan discussed with: Patient My Orders Orders - SAMUEL WATTS MD Procedure Category Date Status Time Drug Screen LAB 04/27/25 Transmitted 13:17 * Neurology Consult CONS 04/27/25 Verified 13:18 Date of Service: Apr 27, 2025 Billing Provider: SAMUEL WATTS MD Common Visit Codes: [id number] INP/OBS CARE(HIGH) SAMUEL WATTS MD Apr 27, 2025 13:20
--- NOTE | 2025-04-27 22:25 | DVHINCON2 ---
Date of service: Apr 27, [address] Tolentino Reason for Consultation New onset seizure History of Present Illness Mr. Palma is a 39 years old right-handed gentleman otherwise healthy, the patient was admitted to the [facility] with a chief complaint of seizure activity. At this time, he is alert and fully oriented, he provided the following history He remembers in the kitchen, but the next memory was waking up in the ambulance confused, he was said to have fall and had seizure at home, he also noticed pain in the left orbital region. He has never had similar problems seizure previously, he denies symptoms of olfactory hallucination/gustatory hallucination, he has no history of traumatic head injury, intracranial infection, or family history of seizure disorder, he denies sleep deprivation, chills, fever or other acute illness Plasma alcohol, 04/26/2025: <3 CBC, 04/26/2025: Unremarkable CMP, 04/27/2025: TBI: 2.5 Lactic acid, 04/26/2025: 7.3, 3.4, 04/27/25:0.8 CT head, 04/26/2025: No acute intracranial abnormality. Past Medical History None Past Surgical History None Family History No major medical problems Social History He smoked tobacco, but no history of drug or alcohol abuse Allergies: Coded Allergies: NO KNOWN ALLERGIES (Unverified , 10/11/19) Review of Systems As above, the other systems are negative Vital Signs Vital Signs Date Time Temp Pulse Resp B/P (MAP) Pulse Ox O2 Delivery O2 Flow Rate FiO2 04/27/25 17:00 98.4 60 18 108/58 (75) 99 98.4 04/27/25 08:00 Room Air* 0 21 Physical Exam GENERAL EXAM: General: the patient is well developed and nourished. No acute distress. HEENT: Normocephalic, neck is supple, no carotid bruits. No mass. The throat is Mallampati grade RESPIRATORY: Normal respiratory effort with symmetrical lung expansion. Lungs clear to auscultation. CARDIOVASCULAR: Regular rate and rhythm with no murmurs. S1, S2. ABDOMEN: Soft, nontender, normal bowel sound NEUROLOGICAL: MENTAL STATUS: Awake and alert. Oriented to person, place, time and general circumstances. Able to give personal history. SPEECH, LANGUAGE, HIGHER CORTICAL FUNCTION: no aphasia or dysathria. CRANIAL NERVES: #2: Intact visual booth to confrontation. The optic discs were sharp. #3,4,6: Pupils are equal, round and reactive. EOMs full and conjugate. No nystagmus. #5: Facial sensation intact in all three divisions bilaterally. Mandibular strength intact. #7: Facial muscles symmetrical and strength intact. #8: Hearing grossly normal to voice. #9,10: Uvula and soft palate rise in the midline. Swallow and voice are normal. #11: Trapezius and sternomastoid strength intact bilaterally. #12: Tongue midline. No fasciculations or atrophy. SENSATION: Sensation to touch and pinprick is normal. MOTOR: Normal tone in the upper and lower extremity. Normal muscle bulk. No fasciculations. No abnormal movements or posturing. Muscle strength of the major groups in the upper extremities is 5/5. Muscle strength of the major groups in the lower extremities is 5/5. REFLEXES: Deep tendon reflexes normal and symmetrical. No pathological reflexes. CEREBELLAR/COORDINATION: Finger to nose and heel to ram are normal bilaterally. GAIT/STATION: deferred Labs/Diagnostic Data Labs Test 04/27/25 06:27 04/26/25 15:45 04/26/25 12:56 Range/Units Sodium Level 138 136-145 mmol/L Potassium Level 4.2 3.5-5.1 mmol/L Chloride Level 107 98-107 mmol/L Carbon Dioxide Level 22 20-31 mmol/L Anion Gap 9 5-15 Blood Urea Nitrogen 6 L 9-23 mg/dL Creatinine 0.96 0.700-1.30 mg/dL Glomerular Filtration Rate Calc 104 >90 mL/min BUN/Creatinine Ratio 6.3 L 10.0-20.0 Serum Glucose 95 74-106 mg/dL Lactic Acid Level 0.8 0.4-2.0 mmol/L Calcium Level 8.8 8.7-10.4 mg/dL Total Bilirubin 2.5 H 0.2-1.0 mg/dL Aspartate Amino Transferase (AST) 36 13-40 U/L Alanine Aminotransferase (ALT) 16 7-40 U/L Alkaline Phosphatase 63 46-116 U/L Total Protein 6.5 5.7-8.2 g/dL Albumin 4.1 3.2-4.8 g/dL Troponin I High Sensitivity 25 </=54 ng/L White Blood Count 5.6 4.4-10.8 10^3/uL Red Blood Count 5.01 4.5-5.90 10^6/uL Hemoglobin 15.5 13.5-17.5 g/dL Hematocrit 46.7 41.0-53.0 % Mean Corpuscular Volume 93.3 80.0-100.0 fL Mean Corpuscular Hemoglobin 31.0 28.0-32.0 pg Mean Corpuscular Hemoglobin Concent 33.2 32.0-36.0 g/dL Red Cell Distribution Width 14.4 H 11.8-14.3 % Platelet Count 273 140-450 10^3/uL Mean Platelet Volume 8.3 6.9-10.8 fL Neutrophils (%) (Auto) 37.0-80.0 % Lymphocytes (%) (Auto) 10.0-50.0 % Monocytes (%) (Auto) 0.0-12.0 % Basophils (%) (Auto) 0.0-2.0 % Neutrophils # (Auto) 1.6-8.6 10 ^3/uL Lymphocytes # (Auto) 0.4-5.4 10 ^3/uL Monocytes # (Auto) 0-1.3 10 ^3/uL Differential Total Cells Counted 100.0 100 Neutrophils % (Manual) 29 L 37.0-80.0 Band Neutrophils % (Manual) 0 Lymphocytes % (Manual) 55 H 10.0-50.0 Monocytes % (Manual) 8 0-12 Eosinophils % (Manual) 3 0-7 Basophils % (Manual) 0 0.0-2.0 Metamyelocytes % (manual) 0 Myelocytes % (Manual) 0 Promyelocytes % (Manual) 0 Blast Cells % (Manual) 0 Reactive Lymphocytes 5 Platelet Estimate Adequate Red Blood Cell Morphology Normal Magnesium Level 2.6 1.6-2.6 mg/dL Creatine Kinase 296 H 46-171 U/L Plasma/Serum Blood Alcohol < 3.0 <10 mg/dL Assessment New onset seizure Plan/Recommendation Monitoring Supportive treatment Telemetry EEG MR head Ativan for seizure breakthrough Preventive seizure treatment is not indicated at this moment Common seizure triggered fracture discussed Avoid sleep deprivation No alcohol, street drug, He has been advised not to drive and he is cleared DMV report in the chart More recommendation per clinical course This medical document was created using an electronic medical record system with Dragon computerized dictation system. Although this document has been carefully reviewed, there may still be some phonetic and typographical errors. These areas are purely typographical due to imperfections of the software programs, and do not reflect any compromise in the patient's medical care. Plan discussed with: Patient, Other SHAHANA IRELAND MD Apr 27, 2025 22:25
[2025-04-27] MEDS ORDERED: LORazepam 2MG/ML-1ML VIAL IV PRN ×2 (22:45)
[2025-04-28 05:00] VITALS: BP 103/62; PULSE 64; RESP 17; TEMP 98.8; O2SAT 97
[2025-04-28 08:00] VITALS: PULSE 67; RESP 20; O2SAT 100
[2025-04-28 08:27] VITALS: BP 113/75; PULSE 67; RESP 20; TEMP 97; O2SAT 100
--- NOTE | 2025-04-28 08:55 | DVH ---
PROCEDURE: MRI BRAIN HEAD WO CONTRAST Indication: sz COMPARISON: 04/26/2025 TECHNIQUE: Multiplanar multisequence images of the brain are obtained. FINDINGS: There is no abnormal diffusion restriction. There is no intracranial hemorrhage. No extra-axial flui d collection, mass effect or midline shift. The ventricles are midline and normal in size. The cister ns are patent. Normal intracranial flow voids are preserved. No abnormal susceptibility signal. The sinuses and mastoids are well pneumatized. The visualized orbits are unremarkable. IMPRESSION: No acute cerebrovascular ischemia.
--- NOTE | 2025-04-28 10:33 | DVHPN2 ---
Reviewed: Care Plan, H&P, Labs, Medications, Previous Orders, Radiology Changes from previous H/P or p: No Changes Objective Vitals Vital Signs Date Time Temp Pulse Resp B/P (MAP) Pulse Ox O2 Delivery O2 Flow Rate FiO2 04/28/25 08:27 97.0 67 20 113/75 (88) 100 97.0 04/27/25 20:00 Room Air* 0 21 Intake/Output Intake and Output 04/28/25 07:00 Intake Total 1430 ml Balance 1430 ml Intake Oral 1430 ml # Voids 5 Medications Current Medications Medications Dose Ordered Sig/Luis Armando Route Start Time Stop Time Status Last Admin Dose Admin Lorazepam 1 mg Q5MINP PRN IV 04/26/25 14:45 Acetaminophen/ Hydrocodone Bitart 1 tab Q4HP PRN PO 04/26/25 14:45 Temazepam 15 mg QHSP PRN PO 04/26/25 14:45 04/28/25 03:35 15 MG Ondansetron HCl 4 mg Q4HP PRN IV 04/26/25 14:45 04/26/25 21:06 4 MG Acetaminophen 650 mg Q6HP PRN PO 04/26/25 14:45 04/27/25 12:35 650 MG Lorazepam 1 mg Q5MINP PRN IV 04/27/25 22:45 Lorazepam 1 mg ONCE PRN IV 04/27/25 22:45 Laboratory Results Laboratory Tests 04/26/25 12:56 04/27/25 06:27 Labs and/or images reviewed: Labs reviewed by me, Image(s) reviewed by me Assessment/Plan Assessment/Plan New onset seizure: Ativan p.r.n., Neurology consult by Dr. Evans appreciated, MRI brain negative, no seizure medications as it is the 1st onset Chest x-ray negative CT head negative C-spine CT negative Blood alcohol neg Plan discussed with: Patient, Other (RN Teri) My Orders Orders - SAMUEL WATTS MD Procedure Category Date Status Time Drug Screen LAB 04/27/25 Logged 13:17 * Neurology Consult CONS 04/27/25 Transmitted 13:18 Date of Service: Apr 28, 2025 Billing Provider: SAMUEL WATTS MD Common Visit Codes: [id number] INP/OBS CARE(HIGH) SAMUEL WATTS MD Apr 28, 2025 10:33
--- NOTE | 2025-04-28 10:37 | DVHDS2 ---
Discharge Summary Date of Admission Apr 26, 2025 at 14:42 Date of Discharge: Apr 28, 2025 Admitting Diagnosis Seizures Wounds: None Labs/Diagnostic Data: Laboratory Results Test 04/27/25 06:27 04/26/25 15:45 04/26/25 12:56 Sodium Level 138 mmol/L (136-145) Potassium Level 4.2 mmol/L (3.5-5.1) Chloride Level 107 mmol/L (98-107) Carbon Dioxide Level 22 mmol/L (20-31) Anion Gap 9 (5-15) Blood Urea Nitrogen 6 mg/dL (9-23) Creatinine 0.96 mg/dL (0.700-1.30) Glomerular Filtration Rate Calc 104 mL/min (>90) BUN/Creatinine Ratio 6.3 (10.0-20.0) Serum Glucose 95 mg/dL (74-106) Lactic Acid Level 0.8 mmol/L (0.4-2.0) Calcium Level 8.8 mg/dL (8.7-10.4) Total Bilirubin 2.5 mg/dL (0.2-1.0) Aspartate Amino Transferase (AST) 36 U/L (13-40) Alanine Aminotransferase (ALT) 16 U/L (7-40) Alkaline Phosphatase 63 U/L (46-116) Total Protein 6.5 g/dL (5.7-8.2) Albumin 4.1 g/dL (3.2-4.8) Troponin I High Sensitivity 25 ng/L (</=54) White Blood Count 5.6 10^3/uL (4.4-10.8) Red Blood Count 5.01 10^6/uL (4.5-5.90) Hemoglobin 15.5 g/dL (13.5-17.5) Hematocrit 46.7 % (41.0-53.0) Mean Corpuscular Volume 93.3 fL (80.0-100.0) Mean Corpuscular Hemoglobin 31.0 pg (28.0-32.0) Mean Corpuscular Hemoglobin Concent 33.2 g/dL (32.0-36.0) Red Cell Distribution Width 14.4 % (11.8-14.3) Platelet Count 273 10^3/uL (140-450) Mean Platelet Volume 8.3 fL (6.9-10.8) Neutrophils (%) (Auto) % (37.0-80.0) Lymphocytes (%) (Auto) % (10.0-50.0) Monocytes (%) (Auto) % (0.0-12.0) Basophils (%) (Auto) % (0.0-2.0) Neutrophils # (Auto) 10 ^3/uL (1.6-8.6) Lymphocytes # (Auto) 10 ^3/uL (0.4-5.4) Monocytes # (Auto) 10 ^3/uL (0-1.3) Differential Total Cells Counted 100.0 (100) Neutrophils % (Manual) 29 (37.0-80.0) Band Neutrophils % (Manual) 0 Lymphocytes % (Manual) 55 (10.0-50.0) Monocytes % (Manual) 8 (0-12) Eosinophils % (Manual) 3 (0-7) Basophils % (Manual) 0 (0.0-2.0) Metamyelocytes % (manual) 0 Myelocytes % (Manual) 0 Promyelocytes % (Manual) 0 Blast Cells % (Manual) 0 Reactive Lymphocytes 5 Platelet Estimate Adequate Red Blood Cell Morphology Normal Magnesium Level 2.6 mg/dL (1.6-2.6) Creatine Kinase 296 U/L (46-171) Plasma/Serum Blood Alcohol < 3.0 mg/dL (<10) Other Laboratory Tests 04/27/25 06:27 04/26/25 12:56 Brief Hx & Hospital Course: 72 male with no previous medical history came in admitted for seizures. CT head negative C-spine CT negative chest x-ray negative blood alcohol negative MRI brain negative seen by Neurology Dr. Duque who advised not to drive and also no seizure medications as it is the 1st time that he had seizures Patient is alert awake with stable vital signs at the time of discharge and willing to go home. Discharged home. No new meds. He was advised not to drive until cleared by neurologist. SHAHBAZ Williamson at bedside Consults/Reason for consult Neurologist Dr. Duque Operations or Procedures CT head MRI brain Carotid ultrasound Condition at Discharge: Fair Final Diagnosis/Problems List New onset seizure: Ativan p.r.n., Neurology consult by Dr. Nathan ledbetter, MRI brain negative, no seizure medications as it is the 1st onset Chest x-ray negative CT head negative C-spine CT negative Blood alcohol neg Discharge Disposition: Home Discharge Instruct/Medications Diet: Regular Activity: See Comment Activity comment: Do not drive until cleared by the Neurologist Follow Up/Referral: Follow up with the Neurologist Dr. Duque in 10 days Medications: None 39 (Time taken for discharge summary 39 minutes) Discharge Statement: "Patient was advised to return to the ER or call 911 if any headaches, dizziness, shortness of breath, chest pain, abdominal pain, bleeding, fevers, or worsening of medical condition. Patient was counseled about treatment plan, medications, possible side effects, patientverbalized understanding. All questions were answered to the best of my ability. This discharge took greater then 30 minutes in planning, reviewing documentation, counseling the patient, and discussing with other team members." ASSESSMENT ASSESSMENT Hospital Course Improved Assessment New onset seizure: Bert p.rsal, Neurology consult by Dr. Nathan ledbetter, MRI brain negative, no seizure medications as it is the 1st onset Chest x-ray negative CT head negative C-spine CT negative Blood alcohol neg Date of Service: Apr 28, 2025 Billing Provider: SAMUEL WATTS MD Common Visit Codes: 29665-DUN/OBS DISCH DAY >30min SAMUEL WATTS MD Apr 28, 2025 10:37
[2025-04-28 12:12] VITALS: BP 113/75; PULSE 67; RESP 20; TEMP 97.6; O2SAT 100
[2025-04-28 14:32] LABS: Urine Protein, UAD Negative (Negative)
[2025-04-28 14:48] LABS: Benzodiazephine Screen, Urine Neg (NEGATIVE)
[2025-04-28 14:49] LABS: Amphetamine Screen, Urine Neg (NEGATIVE); Barbiturate Scree,Urine Neg (NEGATIVE); Cannabinoid Screen, Urine Pos (NEGATIVE); Cocaine Screen, Urine Neg (NEGATIVE); Opiate Scree,Urine Neg (NEGATIVE); Phencyclidine Screen, Urine Neg (NEGATIVE)
== END 2025-04-28 12:40 | disposition home or self-care (01) | DRG 53 ==
LOC: EDBD 12:41 → ER 12:41 → OVERFLOW 14:42 → EAST 17:05
PROVIDERS: ADMIT Family Medicine; ATTEND Family Medicine
DX: G40.909 Epilepsy, unspecified, not intractable, without status epilepticus (principal); N17.0 Acute kidney failure with tubular necrosis; E87.20 Acidosis, unspecified; M62.82 Rhabdomyolysis; F17.210 Nicotine dependence, cigarettes, uncomplicated; M54.2 Cervicalgia
CPT/HCPCS: 36415; 70450; 70551; 71045; 72125; 80053; 80307; 80320; 81001; 82550; 83605; 83735; 84484; 85007; 85027; 96361; 96374; G0378; J2405

== ENCOUNTER 2025-06-07 15:28 | Inpatient (IN) | payer MEDICAID ==
[~2025-06-07] VITALS: Ht 190.5 cm; Wt 91.0 kg
--- NOTE | 2025-06-07 15:46 | ED.PDOC ---
History of Present Illness HPI Comments 39-year-old male NILE with prior medical history of seizures chief complaint of a seizure. EMS report that the patient was in the vehicle when his daughter ran into the house telling for on his father is in the car, for which he was not and had a seizure. Patient was diaphoretic for EMS EN route to the ER with nausea and vomiting. Patient had an Accu-Chek of 157. Social history of alcohol use, marijuana use. Denies chills, fever, /D, SOB, CP. No other associated symptoms, modifiers, recent injuries or sick contacts present at this time. Chief Complaint: Seizure Time Seen by MD: 15:40 Primary Care Provider: unknown Reviewed Notes: Nurses Notes, Medications, Allergies Allergies: Coded Allergies: NO KNOWN ALLERGIES (Unverified , 10/11/19) Home Meds No Active Prescriptions or Reported Meds Information Source: Patient Mode of Arrival: EMS Severity: Moderate Timing: Minutes Duration: Since onset, Minutes Prehospital treatment: None Past Medical History PAST MEDICAL HISTORY: Seizures Surgical History: Denies all surgeries Family History Family History: Reviewed,noncontributory to illness, Unknown Social History Smoker: Cigarettes Alcohol: Occasionally Drugs: Marijuana Lives In: Home Constitutional: denies: chills, diaphoresis, fatigue, fever, malaise, sweats, weakness, others EENTM: denies: blurred vision, double vision, ear bleeding, ear discharge, ear drainage, ear pain, ear ringing, eye pain, eye redness, hearing loss, mouth pain, mouth swelling, nasal discharge, nose bleeding, nose congestion, nose pain, photophobia, tearing, throat pain, throat swelling, voice changes, others Respiratory: denies: cough, hemoptysis, orthopnea, SOB at rest, shortness of breath, SOB with excertion, stridor, wheezing, others Cardiovascular: denies: chest pain, dizzy spells, diaphoresis, Dyspnea on exertion, edema, irregular heart beat, left arm pain, lightheadedness, palpitations, PND, syncope, others Gastrointestinal: reports: nausea, vomiting; denies: abdomen distended, abdom inal pain, blood streaked bowels, constipated, diarrhea, dysphagia, difficulty swallowing, hematemesis, melena, poor appetite, poor fluid intake, rectal bleeding, rectal pain, others Genitourinary: denies: burning, dysuria, flank pain, frequency, hematuria, incontinence, penile discharge, penile sore, pain, testicle pain, testicle swelling, urgency, others Neurological: reports: seizure; denies: dizziness, fainting, headache, left sided numbness, left sided weakness, numbness, paresthesia, pre-existing deficit, right sided numbness, right sided weakness, speech problems, tingling, tremors, weakness, others Musculoskeletal: denies: back pain, gout, joint pain, joint swelling, muscle pain, muscle stiffness, neck pain, others Integumetry: denies: bruises, change in color, change in hair/nails, dryness, laceration, lesions, lumps, rash, wounds, others Allergic/Immunocompromised: denies: Difficulty Healing, Frequent Infections, Hives, Itching, others Hematologic/Lymphatic: denies: anemia, blood clots, easy bleeding, easy bruising, swollen glands, others Endocrine: denies: excessive hunger, excessive sweating, excessive thirst, excessive urination, flushing, intolerance to cold, intolerance to heat, unexplained weight gain, unexplained weight loss, others Psychiatric: denies: anxiety, bipolar disorder, depression, hopeless, panic disorder, schizophrenia, sleepless, suicidal, others All Other Systems: Reviewed and Negative Physical Exam General Appearance: Moderate Distress, Normal HEENT: Normal ENT Inspection, Pharynx Normal, TMs Normal Neck: Full Range of Motion, Non-Tender, Normal, Normal Inspection Respiratory: Chest Non-Tender, Lungs Clear, No Accessory Muscle Use, No Respiratory Distress, Normal Breath Sounds Cardiovascular: No Edema, No JVD, No Murmur, No Gallop, Normal Peripheral Pulses, Regular Rate/Rhythm Breast Exam: Deferred Gastrointestinal: No Organomegaly, Non Tender, No Pulsatile Mass, Normal Bowel Sounds, Soft Genitalia: Deferred Pelvic: Deferred Rectal: Deferred Extremities: No calf tenderness, Normal capillary refill, Normal inspection, No rmal range of motion, Non-tender, No pedal edema Musculoskeletal : Apperance: Normal Neurologic: Alert, survey methodologist II-XII nml as Tested, No Motor Deficits, Normal Affect, Normal Mood, No Sensory Deficits Cerebellar Function: NOT DONE Reflexes: NOT DONE Skin: Dry, Normal Color, Warm Peripheral Pulses: 3+ Radial (R), 3+ Radial (L) Lymphatic: No Adenopathy Was a procedure done? Was a procedure done?: No Differential Dx Considerations may include: Anemia Electrolyte imbalance X-Ray, Labs, Meds, VS Vital Signs Date Time Temp Pulse Resp B/P (MAP) Pulse Ox O2 Delivery O2 Flow Rate FiO2 06/07/25 16:00 53 16 105/45 (65) 94 06/07/25 15:58 94 Room Air* 0 21 06/07/25 15:53 59 16 94 Room Air* 0 21 06/07/25 15:52 99.0 55 16 101/48 (65) 94 99.0 06/07/25 15:43 99.0 56 18 104/62 98 99.0 Lab Test 06/07/25 16:06 06/07/25 15:49 Range/Units White Blood Count 3.8 L 4.4-10.8 10^3/uL Red Blood Count 4.89 4.5-5.90 10^6/uL Hemoglobin 15.5 13.5-17.5 g/dL Hematocrit 46.2 41.0-53.0 % Mean Corpuscular Volume 94.5 80.0-100.0 fL Mean Corpuscular Hemoglobin 31.6 28.0-32.0 pg Mean Corpuscular Hemoglobin Concent 33.4 32.0-36.0 g/dL Red Cell Distribution Width 14.7 H 11.8-14.3 % Platelet Count 224 140-450 10^3/uL Mean Platelet Volume 8.4 6.9-10.8 fL Neutrophils (%) (Auto) 60.7 37.0-80.0 % Lymphocytes (%) (Auto) 27.4 10.0-50.0 % Monocytes (%) (Auto) 9.4 0.0-12.0 % Eosinophils (%) (Auto) 2.0 0.0-7.0 % Basophils (%) (Auto) 0.5 0.0-2.0 % Neutrophils # (Auto) 2.3 1.6-8.6 10 ^3/uL Lymphocytes # (Auto) 1.0 0.4-5.4 10 ^3/uL Monocytes # (Auto) 0.4 0-1.3 10 ^3/uL Eosinophils # (Auto) 0.1 0-0.8 10 ^3/uL Basophils # (Auto) 0 0-0.2 10 ^3/uL Nucleated Red Blood Cells 0.2 % Sodium Level 139 136-145 mmol/L Potassium Level 4.1 3.5-5.1 mmol/L Chloride Level 109 H 98-107 mmol/L Carbon Dioxide Level 22 20-31 mmol/L Anion Gap 8 5-15 Blood Urea Nitrogen < 5 L 9-23 mg/dL Creatinine 1.19 0.700-1.30 mg/dL Glomerular Filtration Rate Calc 81 >90 mL/min BUN/Creatinine Ratio 4.2 L 10.0-20.0 Serum Glucose 121 H 74-106 mg/dL Calcium Level 9.3 8.7-10.4 mg/dL POC Glucose 150 H 70-106 mg/dl Current Medications Medications (Trade) Dose Ordered Sig/Luis Armando Route Start Time Stop Time Status Last Admin Prochlorperazine Edisylate (Compazine Inj) 10 mg ONCE ONCE IV 06/07/25 16:00 06/07/25 16:01 DC 06/07/25 16:02 Levetiracetam 100 ml @ 400 mls/hr ONCE ONCE IV 06/07/25 16:00 06/07/25 16:14 DC 06/07/25 16:02 Sodium Chloride 1,000 ml @ 1,000 mls/hr Q1H ONCE IV 06/07/25 16:00 06/07/25 16:59 DC 06/07/25 16:02 Sodium Chloride 1,000 ml @ 150 mls/hr Q6H40M ONCE IV 06/07/25 16:00 06/07/25 22:39 06/07/25 16:03 Patient was found in the car by family. Vitals stable. Postictal. Moving all extremities. History of seizure. Uses marijuana. Establish intravenous access. Was given fluids. Was given Keppra. Was given Compazine. Continue to monitor. Time of 1ST Reevaluation: 16:10 Reevaluation 1ST: Unchanged Patient Education/Counseling: Diagnosis, Treatment, Prognosis Family Education/Counseling: No Family Present SEPSIS Sepsis Screen Physician Orders Urinalysis (06/07/25 15:47) Sodium Chloride 0.9% (06/07/25 16:00) Vital Signs Date Time Temp Pulse Resp B/P (MAP) Pulse Ox O2 Delivery O2 Flow Rate FiO2 06/07/25 16:00 53 16 105/45 (65) 94 06/07/25 15:58 94 Room Air* 0 21 06/07/25 15:53 59 16 94 Room Air* 0 21 06/07/25 15:52 99.0 55 16 101/48 (65) 94 99.0 06/07/25 15:43 99.0 56 18 104/62 98 99.0 Laboratory Tests Test 06/07/25 16:06 White Blood Count 3.8 10^3/uL (4.4-10.8) L Medications Medications Dose Ordered Sig/Luis Armando Route Start Time Stop Time Status Last Admin Dose Admin Levetiracetam 100 ml @ 400 mls/hr ONCE ONCE IV 06/07/25 16:00 06/07/25 16:14 DC 06/07/25 16:02 Prochlorperazine Edisylate 10 mg ONCE ONCE IV 06/07/25 16:00 06/07/25 16:01 DC 06/07/25 16:02 Sodium Chloride 1,000 ml @ 150 mls/hr Q6H40M ONCE IV 06/07/25 16:00 06/07/25 22:39 06/07/25 16:03 Sodium Chloride 1,000 ml @ 1,000 mls/hr Q1H ONCE IV 06/07/25 16:00 06/07/25 16:59 DC 06/07/25 16:02 Departure 1 Departure Time of Disposition: 16:28 Impression: Primary Impression: Metabolic encephalopathy Additional Impression: Seizure Disposition: 09 ADMITTED INPATIENT Admit to: Med Surg Condition: Guarded e-Prescriptions No Active Prescriptions or Reported Meds Critical Care Note Critical Care Time?: Yes (90 min-critical care time only) Critical care comment: Monitoring for seizure Stability Stability form required: No Heart Score Heart Score: Heart Score Response (Comments) Value History N/A 0 EKG N/A 0 Age N/A 0 Risk Factors N/A 0 Troponin N/A 0 Total 0 I personally scribed for CARLOS PICKARD MD ([email or web address]) on 06/07/25 at 15:46. Electronically submitted by Jaziel Smith ([email or web address]). CARLOS PICKARD MD Jun 07, 2025 15:46
[2025-06-07 15:53] VITALS: PULSE 59; RESP 16; O2SAT 94
[2025-06-07] MEDS: PROCHLORPERAZINE EDISYLATE 5 MG/ML 2ML VIAL IV ONE (16:02)
[2025-06-07] MEDS: SODIUM CHLORIDE 0.9% 1,000 ML IV ONE ×2 (16:02→16:03)
[2025-06-07] MEDS: levETIRAcetam 1000 mg/100ml 100 ML IV ONE (16:02)
[2025-06-07 16:24] LABS: Hematocrit 46.2 % (41.0-53.0); Hemoglobin 15.5 g/dL (13.5-17.5); Mean Corpuscular Hemoglobin 31.6 pg (28.0-32.0); Mean Corpuscular Volume 94.5 fL (80.0-100.0); Nucleated Red Blood Cells % 0.2 %
[2025-06-07 16:31] LABS: Potassium 4.1 mmol/L (3.5-5.1); Sodium 139 mmol/L (136-145)
[2025-06-07 16:32] LABS: Anion Gap 8 (5-15); Calcium 9.3 mg/dL (8.7-10.4); Carbon Dioxide 22 mmol/L (20-31); Chloride 109 mmol/L (98-107)
[2025-06-07 16:38] LABS: BUN/Creatinine Ratio 4.2 (10.0-20.0); Blood Urea Nitrogen < 5 mg/dL (9-23); Glucose 121 mg/dL (74-106)
[2025-06-07] MEDS ORDERED: ONDANSETRON HCL 4 MG/2 ML VIAL IV PRN (21:45)
[2025-06-07] MEDS ORDERED: DOCUSATE SOD 100 MG CAP PO PRN (21:45)
[2025-06-07] MEDS: SODIUM CHLORIDE 0.9% 1,000 ML IV SCH (21:45)
[2025-06-07] MEDS: levETIRAcetam 1000 mg/100ml 100 ML IV SCH (22:00)
[2025-06-07] MEDS: HYDROcodone-ACET 5/325MG TAB PO PRN (22:16)
[2025-06-07] MEDS: ACETAMINOPHEN 325 MG TAB PO PRN (22:16)
--- NOTE | 2025-06-07 23:22 | DVHHP2 ---
History of Present Illness Reason for Visit: Seizure History of Present Illness The patient is a 39-year-old male with past medical history of seizure who presented to [facility] ED with complaint of seizure. As reported by EMS, patient was in the vehicle when his daughter ran into the house telling on his father that he is in the car while he was not, but had a seizure. When EMS arrived on the scene, patient was diaphoretic, associated with nausea and vomiting. Patient was seen and evaluated in the ED, laboratory data shows WBC 3.8, platelets 224, sodium 139, potassium 4.1, BUN 5, creatinine 1.19, glucose 121, calcium 9.3, blood pressure 100/45, heart rate 54, temperature 99.0 F, O2 saturation 99% on oxygen. Patient was started on IV Keppra, please see medication orders section in the computer. On my assessment, patient denies chest pain, no headache, no dizziness, no diaphoresis, no seizures activity at this moment, no shortness of breath, no nausea, no vomiting, no fever, no chills. Patient was admitted for further evaluation and medical management. Past Medical History Seizures Past Surgical History Denies all surgeries Family History Reviewed, noncontributory to the management of this case. Past Social History The patient lives at home, smokes cigarettes, drinks alcohol occasionally, uses marijuana. Review of Systems Constitutional: No: Fever, Chills, Sweats, Weakness, Malaise, Other Eyes: No: Pain, Vision change, Conjunctivae inflammation, Eyelid inflammation, Other, Redness ENT: No: Ear pain, Ear discharge, Nose pain, Nose discharge, Nose congestion, Mouth pain, Mouth swelling, Throat pain, Throat swelling, Other Respiratory: No: Cough, Dry, Shortness of breath, SOB with excertion, Wheezing, Hemoptysis, Pleuritic Pain, Sputum, Wheezing, Other Cardiovascular: No: Chest Pain, Palpitations, Orthopnea, Paroxysmal Noc. Dyspnea, Edema, Lt Headedness, Other Gastrointestinal: Nausea, Vomiting; No: Abdominal Pain, Diarrhea, Constipation, Melena, Hematochezia, Other Genitourinary: No Dysuria, No Frequency, No Incontinence, No Hematuria, No Retention, No Other Musculoskeletal: No: other, neck pain, shoulder pain, arm pain, back pain, hand pain, leg pain, foot pain Skin: No: Rash, Lesions, Jaundice, Bruising, Other Neurological: Seizures; No: Weakness, Numbness, Incoordination, Change in speech, Confusion, Other Allergies: Coded Allergies: NO KNOWN ALLERGIES (Unverified , 10/11/19) Medications Current Medications Medications Dose Ordered Sig/Luis Armando Route Start Time Stop Time Status Last Admin Dose Admin Levetiracetam 100 ml @ 400 mls/hr BID IV 06/07/25 22:00 06/07/25 22:00 400 MLS/HR Sodium Chloride 1,000 ml @ 60 mls/hr [id number] IV 06/07/25 21:45 06/07/25 21:45 60 MLS/HR Acetaminophen/ Hydrocodone Bitart 1 tab Q4HP PRN PO 06/07/25 21:45 06/07/25 22:16 1 TAB Ondansetron HCl 4 mg Q4HP PRN IV 06/07/25 21:45 Docusate Sodium 100 mg BIDPRN PRN PO 06/07/25 21:45 Acetaminophen 650 mg Q6HP PRN PO 06/07/25 21:45 06/07/25 22:16 650 MG Exam Vital Signs Vital Signs Date Time Temp Pulse Resp B/P (MAP) Pulse Ox O2 Delivery O2 Flow Rate FiO2 06/07/25 20:00 54 15 100/45 (63) 99 06/07/25 15:58 Room Air* 0 21 06/07/25 15:52 99.0 99.0 General Appearance: Alert, Oriented X3, Cooperative, No acute distress HEENT: Atraumatic, PERRLA, EOMI, Mucous membr. moist/pink Respiratory: Normal air movement Cardiovascular: Regular rate, Normal S1, Normal S2, No murmurs Abdominal: Normal bowel sounds, Soft, No tenderness, No hepatospenomegaly, No masses Extremities: No clubbing, No cyanosis, No edema, Normal pulses, No tenderness/swelling Skin: No rashes, No breakdown, No significant lesion Neuro: Normal speech, Normal tone, Sensation intact, Cranial nerves 3-12 NL, Reflexes 2+, Other (Generalized weakness) Psych/Mental Status: Mental status NL, Mood NL Labs/Xrays Labs Test 06/07/25 16:06 06/07/25 15:49 Range/Units White Blood Count 3.8 L 4.4-10.8 10^3/uL Red Blood Count 4.89 4.5-5.90 10^6/uL Hemoglobin 15.5 13.5-17.5 g/dL Hematocrit 46.2 41.0-53.0 % Mean Corpuscular Volume 94.5 80.0-100.0 fL Mean Corpuscular Hemoglobin 31.6 28.0-32.0 pg Mean Corpuscular Hemoglobin Concent 33.4 32.0-36.0 g/dL Red Cell Distribution Width 14.7 H 11.8-14.3 % Platelet Count 224 140-450 10^3/uL Mean Platelet Volume 8.4 6.9-10.8 fL Neutrophils (%) (Auto) 60.7 37.0-80.0 % Lymphocytes (%) (Auto) 27.4 10.0-50.0 % Monocytes (%) (Auto) 9.4 0.0-12.0 % Eosinophils (%) (Auto) 2.0 0.0-7.0 % Basophils (%) (Auto) 0.5 0.0-2.0 % Neutrophils # (Auto) 2.3 1.6-8.6 10 ^3/uL Lymphocytes # (Auto) 1.0 0.4-5.4 10 ^3/uL Monocytes # (Auto) 0.4 0-1.3 10 ^3/uL Eosinophils # (Auto) 0.1 0-0.8 10 ^3/uL Basophils # (Auto) 0 0-0.2 10 ^3/uL Nucleated Red Blood Cells 0.2 % Sodium Level 139 136-145 mmol/L Potassium Level 4.1 3.5-5.1 mmol/L Chloride Level 109 H 98-107 mmol/L Carbon Dioxide Level 22 20-31 mmol/L Anion Gap 8 5-15 Blood Urea Nitrogen < 5 L 9-23 mg/dL Creatinine 1.19 0.700-1.30 mg/dL Glomerular Filtration Rate Calc 81 >90 mL/min BUN/Creatinine Ratio 4.2 L 10.0-20.0 Serum Glucose 121 H 74-106 mg/dL Calcium Level 9.3 8.7-10.4 mg/dL POC Glucose 150 H 70-106 mg/dl SEPSIS Sepsis Screen Date sepsis recognized/suspect: Jun 07, 2025 Time Sepsis recognized/suspect: 1555 Recent Procedure: No On Antibiotic Therapy: No Respiratory Rate >20: No Heart Rate >90: No Temp<36 C (96.8 F) or >38.3 C: No SBP <90 or MAP <65 mmHG: No New Acute Mental Status Change: No Is the patient on CPAP, BIPAP,: No Physician Orders Urinalysis (06/07/25 15:47) Director Of Radiology (06/07/25 ) Levetiracetam 1000 Mg/100ml (Levetiracet (06/07/25 22:00) * Neurology Consult (06/07/25 21:37) Allergies (06/07/25 21:37) Code Status (06/07/25 21:37) 2 Gm Sodium Diet (06/08/25 Breakfast) Sodium Chloride 0.9% (06/07/25 21:45) Oxygen Per Hour (06/07/25 21:37) Hydrocodone-Acet 5/325mg Tab ([place] 5/32 (06/07/25 21:45) Ondansetron Hcl (Zofran) (06/07/25 21:45) Docusate Sodium Capsule (Colace Capsule) (06/07/25 21:45) Fall Risk Precautions In Place QSHIFT (06/07/25 21:37) Complete Blood Count (06/08/25 04:00) Comprehensive Metabolic Panel (06/08/25 04:00) Condition: Serious (06/07/25 21:37) Acetaminophen Tablet (Tylenol Tablet) (06/07/25 21:45) Maintain Bed Rest (06/07/25 21:37) Sequential Compression Device (06/07/25 ) Vital Signs Date Time Temp Pulse Resp B/P (MAP) Pulse Ox O2 Delivery O2 Flow Rate FiO2 06/07/25 20:00 54 15 100/45 (63) 99 06/07/25 20:00 53 06/07/25 18:00 60 16 106/48 (67) 94 06/07/25 16:00 53 16 105/45 (65) 94 06/07/25 15:58 94 Room Air* 0 21 06/07/25 15:53 59 16 94 Room Air* 0 21 06/07/25 15:52 99.0 55 16 101/48 (65) 94 99.0 06/07/25 15:43 99.0 56 18 104/62 98 99.0 Laboratory Tests Test 06/07/25 16:06 White Blood Count 3.8 10^3/uL (4.4-10.8) L Medications Medications Dose Ordered Sig/Luis Armando Route Start Time Stop Time Status Last Admin Dose Admin Acetaminophen 650 mg Q6HP PRN PO 06/07/25 21:45 06/07/25 22:16 650 MG Acetaminophen/ Hydrocodone Bitart 1 tab Q4HP PRN PO 06/07/25 21:45 06/07/25 22:16 1 TAB Levetiracetam 100 ml @ 400 mls/hr BID IV 06/07/25 22:00 06/07/25 22:00 400 MLS/HR Levetiracetam 100 ml @ 400 mls/hr ONCE ONCE IV 06/07/25 16:00 06/07/25 16:14 DC 06/07/25 16:02 400 MLS/HR Prochlorperazine Edisylate 10 mg ONCE ONCE IV 06/07/25 16:00 06/07/25 16:01 DC 06/07/25 16:02 10 MG Sodium Chloride 1,000 ml @ 60 mls/hr [id number] IV 06/07/25 21:45 06/07/25 21:45 60 MLS/HR Sodium Chloride 1,000 ml @ 150 mls/hr Q6H40M ONCE IV 06/07/25 16:00 06/07/25 22:39 DC 06/07/25 16:03 150 MLS/HR Sodium Chloride 1,000 ml @ 1,000 mls/hr Q1H ONCE IV 06/07/25 16:00 06/07/25 16:59 DC 06/07/25 16:02 1,000 MLS/HR Assessment/Plan Assessment/Plan Seizure disorder Metabolic encephalopathy Generalized weakness Plan 1. Admit to telemetry unit 2. Breathing treatment 3. Pain control management 4. Management of fluids and electrolytes 5. Consultation for Neurology 6. Diagnostic tests head CT 7. DVT prophylaxis-on SCDs 8. Repeat labs CBC, CMP in a.m. 9. Continue with current medical management 10. Treatment plan discussed with patient and RN. Patient verbalized understanding. Plan discussed with: Patient, Other (RN) My Orders Orders - MARIO FELDMAN DNP Procedure Category Date Status Time Levetiracetam 1000 PHA 06/07/25 In Process Mg/100ml (Levetiracet 22:00 * Neurology Consult CONS 06/07/25 Transmitted 21:37 Allergies YEYO 06/07/25 In Process 21:37 Code Status CODE 06/07/25 Transmitted 21:37 2 Gm Sodium Diet DIET 06/08/25 Transmitted Breakfast Sodium Chloride 0.9% PHA 06/07/25 In Process 21:45 Oxygen Per Hour RT 06/07/25 Transmitted 21:37 Hydrocodone-Acet PHA 06/07/25 In Process 5/325mg Tab ([place] 21:45 Ondansetron Hcl PHA 06/07/25 In Process (Zofran) 21:45 Docusate Sodium PHA 06/07/25 In Process Capsule (Colace 21:45 Fall Risk Precautions YEYO 06/07/[address] 21:37 Complete Blood Count LAB 06/08/25 Verified 04:00 Comprehensive LAB 06/08/25 Verified Metabolic Panel 04:00 Condition: Serious YEYO 06/07/25 In Process 21:37 Acetaminophen Tablet PHA 06/07/25 In Process (Tylenol Tablet) 21:45 Maintain Bed Rest YEYO 06/07/25 In Process 21:37 Sequential YEYO 06/07/25 In Process Compression Device Problem List: (1) Seizure disorder (2) Metabolic encephalopathy (3) Generalized weakness Date of Service: Jun 07, 2025 Billing Provider: MARIO FELDMAN DNP Common Visit Codes: [id number] INP/OBS CARE (HIGH) MARIO FELDMAN DNP Jun 07, 2025 23:22
[2025-06-07] MEDS ORDERED: MORPHINE SULFATE INJ 2 MG/ml SYRG IV PRN (23:30)
[2025-06-07] MEDS ORDERED: NITROGLYCERIN 0.4 MG SL TAB SL PRN (23:30)
[2025-06-08 06:36] LABS: Hematocrit 43.1 % (41.0-53.0); Hemoglobin 14.4 g/dL (13.5-17.5); Mean Corpuscular Hemoglobin 31.4 pg (28.0-32.0); Mean Corpuscular Volume 94.1 fL (80.0-100.0); Nucleated Red Blood Cells % 0.3 %
[2025-06-08 06:45] LABS: Alanine Aminotransferase 14 U/L (7-40); Albumin 4.0 g/dL (3.2-4.8); Alkaline Phosphatase 64 U/L (46-116); Anion Gap 3 (5-15); Calcium 8.7 mg/dL (8.7-10.4); Carbon Dioxide 28 mmol/L (20-31); Glucose 89 mg/dL (74-106); Potassium 4.3 mmol/L (3.5-5.1); Sodium 142 mmol/L (136-145); Total Protein 6.1 g/dL (5.7-8.2)
[2025-06-08 06:46] LABS: BUN/Creatinine Ratio 4.3 (10.0-20.0); Bilirubin, Total 2.2 mg/dL (0.2-1.0); Blood Urea Nitrogen < 5 mg/dL (9-23); Chloride 111 mmol/L (98-107)
[2025-06-08 08:07] VITALS: PULSE 50; RESP 14; O2SAT 94
--- NOTE | 2025-06-08 12:19 | DVHPN2 ---
Subjective The patient is seen and examined at bedside. The patient has a little bit groggy, postictal today. Reviewed: Care Plan, H&P, Labs, Medications, Previous Orders, Radiology Changes from previous H/P or p: No Changes Eyes: No Pain, No Vision change, No Conjunctivae inflammation, No Eyelid inflammation, No Other, No Redness ENT: No Ear pain, No Ear discharge, No Nose pain, No Nose discharge, No Nose congestion, No Mouth pain, No Mouth swelling, No Throat pain, No Throat swelling, No Other Cardiovascular: No Chest Pain, No Palpitations, No Orthopnea, No Paroxysmal Noc. Dyspnea, No Edema, No Lt Headedness, No Other Respiratory: No Cough, No Dry, No Shortness of breath, No SOB with excertion, No Wheezing, No Hemoptysis, No Pleuritic Pain, No Sputum, No Other Gastrointestinal: Nausea, Vomiting; No Abdominal Pain, No Diarrhea, No Constipation, No Melena, No Hematochezia, No Other Genitourinary: No Dysuria, No Frequency, No Incontinence, No Hematuria, No Retention, No Other Musculoskeletal: No other, No neck pain, No shoulder pain, No arm pain, No back pain, No hand pain, No leg pain, No foot pain Skin: No Rash, No Lesions, No Jaundice, No Bruising, No Other Objective Vitals Vital Signs Date Time Temp Pulse Resp B/P (MAP) Pulse Ox O2 Delivery O2 Flow Rate FiO2 06/08/25 10:00 57 14 96/40 (58) 97 06/08/25 08:07 98.0 98.0 06/08/25 08:07 Room Air* 0 21 Intake/Output Intake and Output 06/08/25 07:00 Intake Total 2100 ml Balance 2100 ml Intake IV Total 2100 ml General Appearance: Other (Sleepy, postictal) HEENT: Atraumatic, PERRLA, EOMI, Mucous membr. moist/pink Neck: Supple Lungs: Clear to auscultation, Normal air movement Cardiovascular: Regular rate, Normal S1, Normal S2, No murmurs, Gallops, Rubs Abdomen: Normal bowel sounds, Soft, No tenderness Neuro: Cranial nerves 3-12 NL Psych/Mental Status: Mental status NL Medications Current Medications Medications Dose Ordered Sig/Luis Armando Route Start Time Stop Time Status Last Admin Dose Admin Levetiracetam 100 ml @ 400 mls/hr BID IV 06/07/25 22:00 06/08/25 10:16 400 MLS/HR Sodium Chloride 1,000 ml @ 60 mls/hr [id number] IV 06/07/25 21:45 06/07/25 21:45 60 MLS/HR Acetaminophen/ Hydrocodone Bitart 1 tab Q4HP PRN PO 06/07/25 21:45 06/07/25 22:16 1 TAB Ondansetron HCl 4 mg Q4HP PRN IV 06/07/25 21:45 Docusate Sodium 100 mg BIDPRN PRN PO 06/07/25 21:45 Acetaminophen 650 mg Q6HP PRN PO 06/07/25 21:45 06/07/25 22:16 650 MG Nitroglycerin 0.4 mg Q5MINP PRN SL 06/07/25 23:30 Morphine Sulfate 2 mg Q30M PRN IV 06/07/25 23:30 Laboratory Results Laboratory Tests 06/08/25 06:02 Chemistry Test 06/07/25 16:06 06/08/25 06:02 Calcium Level 9.3 mg/dL (8.7-10.4) 8.7 mg/dL (8.7-10.4) Albumin 4.0 g/dL (3.2-4.8) Total Protein 6.1 g/dL (5.7-8.2) LFT Test 06/08/25 06:02 Alanine Aminotransferase (ALT) 14 U/L (7-40) Alkaline Phosphatase 64 U/L (46-116) Aspartate Amino Transferase (AST) 27 U/L (13-40) Total Bilirubin 2.2 mg/dL (0.2-1.0) H Labs and/or images reviewed: Labs reviewed by me Assessment/Plan Assessment/Plan Seizure disorder Metabolic encephalopathy Generalized weakness Continuing current management Continuing with [facility] to see the patient Waiting for EEG This medical document was created using an electronic medical record system with M*M flurency direct computerized dictation system. Although this document has been carefully reviewed, there may still be some phonetic and typographical errors. These areas are purely typographical due to imperfections of the software programs, and do not reflect any compromise in the patient's medical care. Plan discussed with: Patient Date of Service: Jun 08, 2025 Billing Provider: LORRAINE BUITRAGO MD Common Visit Codes: [id number] INP/OBS CARE(HIGH) LORRAINE BUITRAGO MD Jun 08, 2025 12:19
[2025-06-08 20:10] VITALS: PULSE 50; RESP 20; O2SAT 97
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
[2025-06-08] MEDS ORDERED: LORazepam 2MG/ML-1ML VIAL IV PRN (21:30)
[2025-06-08] MEDS: levETIRAcetam 500 MG TAB PO SCH (23:03)
[2025-06-08 23:04] VITALS: BP 138/77; PULSE 40; RESP 18; TEMP 97.6; O2SAT 97
[2025-06-09] VITALS (9 sets, daily range): BP systolic 107–132; BP diastolic 50–75; PULSE 48–70; RESP 16–19; TEMP 97.8–98.9; O2SAT 95–99
[2025-06-09] MEDS ORDERED: ATROPINE SULF 1 MG/10ml SYR IV PRN ×2 (00:30→00:45)
[2025-06-09 10:40] LABS: Triglycerides 90.0 mg/dL (< 150)
[2025-06-09 10:41] LABS: Magnesium 1.9 mg/dL (1.6-2.6)
[2025-06-09 10:42] LABS: Cholesterol 127.0 mg/dL (< 200); HDL Cholesterol 55.0 mg/dL (40-59)
--- NOTE | 2025-06-09 11:21 | DVHINCON2 ---
Date Seen: Jun 09, 2025 Referring Physician MD Angelika Reason for Consultation Bradycardia History of Present Illness This is a 39-year-old male patient who presents to the emergency room with chief complaint of seizure. The patient reports he had just finished working and drove home. He then states he woke up in his car. EMS was called and the patient was brought to the emergency room for further evaluation. Cardiology has been called at this time for bradycardia. Initial twelve lead electrocardiogram seen in patient's chart reveals sinus bradycardia without any pauses or atrioventricular blocks. At the time of assessment, the patient is in sinus bradycardia with heart rate in the 50s on registered nurse cardiac telemetry without any pauses or atrioventricular blocks. Patient denies any cardiac symptoms including chest pain, palpitations, shortness of breath, lightheadedness, or dizziness. Significant past medical history includes seizures. The patient denies taking any prescribed or apod-wvy-ndeqgzq medication at home. Past Medical History Past medical history reviewed. No other significant than mentioned above. Past Surgical History Denies any surgeries Family History: Patient reports no known family medical history. Family History Family history reviewed. Social History Patient admits to vaping, denies any tobacco use Denies illicit drug use Admits to social alcohol use Allergies: Coded Allergies: NO KNOWN ALLERGIES (Unverified , 10/11/19) Home Meds No Active Prescriptions or Reported Meds Home Meds Denies taking any prescribed medications Current Medications Current Medications Medications (Trade) Dose Ordered Sig/Luis Armando Route PRN Reason Start Time Stop Time Status Last Admin Levetiracetam (Keppra Tablet) 500 mg BID PO 06/08/25 22:00 06/09/25 10:00 Lorazepam (Ativan Inj) 1 mg Q5MINP PRN IV SEIZURES 06/08/25 21:30 Atropine Sulfate (Atropine Sulfate) 0.25 mg PRN PRN IV HR LESS 50 06/09/25 00:30 06/09/25 00:42 DC Atropine Sulfate (Atropine Sulfate) 0.25 mg Q2HP PRN IV HR less than 50 06/09/25 00:45 Review of Systems Constitutional: No symptom reported Ears, Nose, & Throat: No symptom reported Eyes: No symptom reported Neurological: Seizure Pulmonary/Respiratory: No symptoms reported Cardiovascular: No symptom reported Gastrointestinal: No symptom reported Genitourinary: No symptom reported Musculoskeletal: No symptom reported Skin: No symptom reported Psychiatric: No symptom reported Endocrine: No symptom reported Hematologic/Lymphatic: No symptom reported Vital Signs Vital Signs Date Time Temp Pulse Resp B/P (MAP) Pulse Ox O2 Delivery O2 Flow Rate FiO2 06/09/25 08:35 68 06/09/25 08:21 98.2 18 120/61 (80) 99 98.2 06/09/25 08:00 Room Air* 0 21 Physical Exam General Appearance: Cooperative. Well-developed. Well-nourished. No acute distress. Pulmonary/Respiratory: Clear, bilateral breaths sounds. Cardiovascular/Chest: Regular rate and rhythm. Peripheral Pulses: 2+ Radial (R). 2+ Radial (L). 2+ Pedal (R). 2+ Pedal (L) Abdominal Exam: Normal bowel sounds. Ankle Exam: Negative ankle edema Lower extremities: Negative lower extremity edema Neuro/Mental Status: A/OX4, coherent. Thoughts/Psych: Normal thought pattern. Appropriate mood and affect. Good judgment and insight. Appearance: No acute distress. Skin Exam: Normal inspection. Normal color. Warm and dry. Labs/Diagnostic Data Labs Test 06/09/25 10:30 06/09/25 10:04 06/08/25 06:02 06/07/25 15:49 Range/Units Thyroid Stimulating Hormone (TSH) 0.73 0.55-4.78 uIU/mL Hemoglobin A1c 5.0 <5.7 % A1C Magnesium Level 1.9 1.6-2.6 mg/dL Triglycerides Level 90 < 150 mg/dL Cholesterol Level 127 < 200 mg/dL LDL Cholesterol 54 < 100 mg/dL HDL Cholesterol 55 40-59 mg/dL White Blood Count 7.3 # 4.4-10.8 10^3/uL Red Blood Count 4.58 4.5-5.90 10^6/uL Hemoglobin 14.4 13.5-17.5 g/dL Hematocrit 43.1 41.0-53.0 % Mean Corpuscular Volume 94.1 80.0-100.0 fL Mean Corpuscular Hemoglobin 31.4 28.0-32.0 pg Mean Corpuscular Hemoglobin Concent 33.4 32.0-36.0 g/dL Red Cell Distribution Width 14.7 H 11.8-14.3 % Platelet Count 208 140-450 10^3/uL Mean Platelet Volume 8.6 6.9-10.8 fL Neutrophils (%) (Auto) 57.8 37.0-80.0 % Lymphocytes (%) (Auto) 32.2 10.0-50.0 % Monocytes (%) (Auto) 8.7 0.0-12.0 % Eosinophils (%) (Auto) 1.0 0.0-7.0 % Basophils (%) (Auto) 0.3 0.0-2.0 % Neutrophils # (Auto) 4.2 1.6-8.6 10 ^3/uL Lymphocytes # (Auto) 2.4 0.4-5.4 10 ^3/uL Monocytes # (Auto) 0.6 0-1.3 10 ^3/uL Eosinophils # (Auto) 0.1 0-0.8 10 ^3/uL Basophils # (Auto) 0 0-0.2 10 ^3/uL Nucleated Red Blood Cells 0.3 % Sodium Level 142 136-145 mmol/L Potassium Level 4.3 3.5-5.1 mmol/L Chloride Level 111 H 98-107 mmol/L Carbon Dioxide Level 28 20-31 mmol/L Anion Gap 3 L 5-15 Blood Urea Nitrogen < 5 L 9-23 mg/dL Creatinine 1.16 0.700-1.30 mg/dL Glomerular Filtration Rate Calc 83 >90 mL/min BUN/Creatinine Ratio 4.3 L 10.0-20.0 Serum Glucose 89 74-106 mg/dL Calcium Level 8.7 8.7-10.4 mg/dL Total Bilirubin 2.2 H 0.2-1.0 mg/dL Aspartate Amino Transferase (AST) 27 13-40 U/L Alanine Aminotransferase (ALT) 14 7-40 U/L Alkaline Phosphatase 64 46-116 U/L Total Protein 6.1 5.7-8.2 g/dL Albumin 4.0 3.2-4.8 g/dL POC Glucose 150 H 70-106 mg/dl Assessment Asymptomatic sinus bradycardia Rule out structural heart disease Seizure disorder Plan/Recommendation We will continue with the following plan/recommendations (Dr. Norwood): Case discussed with . We will proceed with obtaining a transthoracic echocardiogram to evaluate cardiac function. groundwater monitoring technician reviewed and sinus bradycardia events noted. The patient has no pauses or atrioventricular blocks. At this time, no indication for permanent pacemaker. Continue with close cardiac surveillance. Avoid AV duyen blocking agents. In the setting of an unremarkable transthoracic echocardiogram, there is no further inpatient cardiac workup indicated at this time. Thank you for allowing us to care for this patient. Please call with any questions or concerns. Critical care time spent: 44 minutes This medical document was created using an electronic medical record system with voice recognition software and computerized dictation system. Although this document has been carefully reviewed, there might still be some phonetic and typographical errors. Occasional wrong-word or ``sound-alike substitutions may have occurred due to the inherent limitations of voice recognition software. These areas are purely typographical due to imperfections of the software prog rudy and do not reflect any compromise in the patient's medical care. Please read the chart carefully and recognize, using context, where these substitutions have occurred. Plan discussed with: Patient NYHA Physical activity limitations: NA Date of Service: Jun 09, 2025 Billing Provider: JESSIE PEARCE Cardiology Common Codes: [id number] INP/OBS CARE (High) Cardiology Consultation Codes: [id number] CONSULT <45MIN JESSIE PEARCE Jun 09, 2025 11:21
--- NOTE | 2025-06-09 15:13 | DVHPN2 ---
Subjective The patient is seen and examined at bedside. The patient is more alert awake today. No seizure activity overnight. Reviewed: Care Plan, H&P, Labs, Medications, Previous Orders, Radiology Changes from previous H/P or p: No Changes Eyes: No Pain, No Vision change, No Conjunctivae inflammation, No Eyelid inflammation, No Other, No Redness ENT: No Ear pain, No Ear discharge, No Nose pain, No Nose discharge, No Nose congestion, No Mouth pain, No Mouth swelling, No Throat pain, No Throat swelling, No Other Cardiovascular: No Chest Pain, No Palpitations, No Orthopnea, No Paroxysmal Noc. Dyspnea, No Edema, No Lt Headedness, No Other Respiratory: No Cough, No Dry, No Shortness of breath, No SOB with excertion, No Wheezing, No Hemoptysis, No Pleuritic Pain, No Sputum, No Other Gastrointestinal: Nausea, Vomiting; No Abdominal Pain, No Diarrhea, No Constipation, No Melena, No Hematochezia, No Other Genitourinary: No Dysuria, No Frequency, No Incontinence, No Hematuria, No Retention, No Other Musculoskeletal: No other, No neck pain, No shoulder pain, No arm pain, No back pain, No hand pain, No leg pain, No foot pain Skin: No Rash, No Lesions, No Jaundice, No Bruising, No Other Objective Vitals Vital Signs Date Time Temp Pulse Resp B/P (MAP) Pulse Ox O2 Delivery O2 Flow Rate FiO2 06/09/25 13:33 98.9 70 17 115/66 (82) 95 98.9 06/09/25 08:00 Room Air* 0 21 Intake/Output Intake and Output 06/09/25 07:00 Intake Total 458 ml Balance 458 ml Intake Oral 118 ml IV Total 340 ml # Voids 1 General Appearance: Alert, No acute distress HEENT: Atraumatic, PERRLA, EOMI, Mucous membr. moist/pink Neck: Supple Lungs: Clear to auscultation Cardiovascular: Regular rate, Normal S1, Normal S2, No murmurs, Gallops, Rubs Abdomen: Normal bowel sounds, Soft, No tenderness Neuro: Cranial nerves 3-12 NL Psych/Mental Status: Mental status NL Medications Current Medications Medications Dose Ordered Sig/Luis Armando Route Start Time Stop Time Status Last Admin Dose Admin Sodium Chloride 1,000 ml @ 60 mls/hr [id number] IV 06/07/25 21:45 06/09/25 08:38 60 MLS/HR Acetaminophen/ Hydrocodone Bitart 1 tab Q4HP PRN PO 06/07/25 21:45 06/07/25 22:16 1 TAB Ondansetron HCl 4 mg Q4HP PRN IV 06/07/25 21:45 Docusate Sodium 100 mg BIDPRN PRN PO 06/07/25 21:45 Acetaminophen 650 mg Q6HP PRN PO 06/07/25 21:45 06/07/25 22:16 650 MG Nitroglycerin 0.4 mg Q5MINP PRN SL 06/07/25 23:30 Morphine Sulfate 2 mg Q30M PRN IV 06/07/25 23:30 Levetiracetam 500 mg BID PO 06/08/25 22:00 06/09/25 10:00 500 MG Lorazepam 1 mg Q5MINP PRN IV 06/08/25 21:30 Atropine Sulfate 0.25 mg Q2HP PRN IV 06/09/25 00:45 Laboratory Results Laboratory Tests 06/08/25 06:02 Chemistry Test 06/09/25 10:04 Magnesium Level 1.9 mg/dL (1.6-2.6) Lipid panel Test 06/09/25 10:04 Cholesterol Level 127 mg/dL (< 200) HDL Cholesterol 55 mg/dL (40-59) Triglycerides Level 90 mg/dL (< 150) HgA1c, TSH Test 06/09/25 10:04 06/09/25 10:30 Hemoglobin A1c 5.0 % A1C (<5.7) Thyroid Stimulating Hormone (TSH) 0.73 uIU/mL (0.55-4.78) Labs and/or images reviewed: Labs reviewed by me, Image(s) reviewed by me Assessment/Plan Assessment/Plan Seizure disorder Metabolic encephalopathy Generalized weakness Continuing current management Continuing with [facility] For Neurology to see the patient Waiting for EEG This medical document was created using an electronic medical record system with M*M [employer] direct computerized dictation system. Although this document has been carefully reviewed, there may still be some phonetic and typographical errors. These areas are purely typographical due to imperfections of the software programs, and do not reflect any compromise in the patient's medical care. Plan discussed with: Patient Date of Service: Jun 09, 2025 Billing Provider: LORRAINE BUITRAGO MD Common Visit Codes: [id number] INP/OBS CARE(HIGH) LORRAINE BUITRAGO MD Jun 09, 2025 15:13
--- NOTE | 2025-06-09 16:20 | DVHSR ---
APPROVED REPORT EXAM: LIMITED Two-dimensional and M-mode echocardiogram with Doppler and color Doppler. Blood Pressure: 120/61 mmHg INDICATION Evaluate Cardiac Function RISK FACTORS Height: 6' 3", Weight: 200 DIMENSIONS LVDd4.1 (3.8-5.7cm)LA (2D)3.8 (1.9-4.0cm)Aortic Root3.0 (2.0-3.7cm) LVDs2.5 (2.5-4.0cm)LA (MM) (1.9-4.0cm)Aortic Cusp Exc1.9 (1.5-2.0cm) EF (%) 70.0 (55-70%)Rt. Atrium3.4 (1.9-4.0cm)Asc. Aorta cm IVSd1.5 (0.7-1.1cm)RV (D) (1.8-2.4cm) PWd1.5 (0.7-1.1cm) Mitral Valve MitralMitral Stenosis E wave1.00m/sMV Mean GR.mmHg A wave0.70m/sMV Peak GR.mmHg E/A ratio1.42D MVAcm2 Aortic Valve Aortic ValveAortic Stenosis V11.70m/Emily Mean GR.9mmHg V21.90m/Emily Peak GR.15mmHg LVOT Diameter2.6 (1.8-2.4cm)Doppler AVA4.75cm2 Other Information Quality : Technically LimitedRhythm : Technically limited study due to body habitus, patient laying on right side. Conclusion lvef 70% sever concentric LVH normal rv function left atrium enlarged no severe valve abnormalities noted cannot eval for AI, turbulent flow across LVOT
--- NOTE | 2025-06-09 20:00 | DVHPN2 ---
Progress Note - Dictate Date Seen: Jun 09, 2025 Medical Necessity Reason Pt with a Central, PICC or Fol: No Subjective Mr. Palma is a 39 years old right-handed gentleman otherwise healthy, the patient was admitted to the [facility] with a chief complaint of seizure. At this time, he is alert and fully oriented, he provided the following history I saw him on 04/27/2025 for new onset seizure On 06/07/2025, after getting into his car with his 3 years old daughter, he passed out with no warning symptoms, his daughter returned to home reporting to the family that his dad was in the car. The patient related he woke up with profuse sweating, but there was no convulsion, biting or incontinence. On waking up, he was slightly confused, but he was able to recognize the place, time, and all his family members. When EMS arrived, he also had nausea and vomiting On 04/26/2025, He remembers in the kitchen with her family, but the next memory was waking up in the ambulance confused, he was said to have fall and seizure but he reported that he did not have convulsion. He had pain in the left orbital region. He had never had similar problems or seizure previously He denies symptoms of olfactory hallucination/gustatory hallucination, he has no history of traumatic head injury, intracranial infection, or family history of seizure disorder, he denies sleep deprivation, chills, fever or other acute illness Bradycardia with heart rate to 40 (RN: to 30s) captured on in 05/2025 Plasma alcohol, 04/26/2025: <3 CBC, 06/08/2025: Unremarkable CMP, 06/08/2025: Unremarkable TBI/AST/ALT/AP, 06/08/2025: 2.2/207/14/64 CT head, 04/26/2025: No acute intracranial abnormality MRI head, 04/27/2025: No acute cerebrovascular ischemia vital signs Vital Sign Date Time Temp Pulse Resp B/P (MAP) Pulse Ox O2 Delivery O2 Flow Rate FiO2 06/09/25 17:23 98.4 55 19 125/71 (89) 99 98.4 06/09/25 08:00 Room Air* 0 21 Total Intake and Output 06/08/25 06/08/25 06/09/25 15:00 23:00 07:00 Intake Total 100 ml 240 ml 118 ml Balance 100 ml 240 ml 118 ml medications Current Medications Medications Dose Ordered Sig/Luis Armando Route Start Time Stop Time Status Last Admin Dose Admin Sodium Chloride 1,000 ml @ 60 mls/hr [id number] IV 06/07/25 21:45 06/09/25 08:38 60 MLS/HR Acetaminophen/ Hydrocodone Bitart 1 tab Q4HP PRN PO 06/07/25 21:45 06/07/25 22:16 1 TAB Ondansetron HCl 4 mg Q4HP PRN IV 06/07/25 21:45 Docusate Sodium 100 mg BIDPRN PRN PO 06/07/25 21:45 Acetaminophen 650 mg Q6HP PRN PO 06/07/25 21:45 06/07/25 22:16 650 MG Nitroglycerin 0.4 mg Q5MINP PRN SL 06/07/25 23:30 Morphine Sulfate 2 mg Q30M PRN IV 06/07/25 23:30 Levetiracetam 500 mg BID PO 06/08/25 22:00 06/09/25 10:00 500 MG Lorazepam 1 mg Q5MINP PRN IV 06/08/25 21:30 Atropine Sulfate 0.25 mg Q2HP PRN IV 06/09/25 00:45 objective General: the patient is well developed and nourished. No acute distress. MENTAL STATUS: Awake and alert. Oriented to person, place, time and general circumstances. Able to give personal history. SPEECH, LANGUAGE, HIGHER CORTICAL FUNCTION: no aphasia or dysathria. CRANIAL NERVES: Pupils are equal, round and reactive. EOMs full and conjugate. No nystagmus. Facial sensation intact in all three divisions bilaterally. Mandibular strength intact. Facial muscles symmetrical and strength intact. Tongue midline. No fasciculations or atrophy. SENSATION: Sensation to touch and pinprick is normal. MOTOR: Normal tone in the upper and lower extremity. Normal muscle bulk. No fasciculations. No abnormal movements or posturing. Muscle strength of the major groups in the extremities is 5/5. REFLEXES: Deep tendon reflexes normal and symmetrical. No pathological reflexes. CEREBELLAR/COORDINATION: Finger to nose and heel to ram are normal bilaterally. GAIT/STATION: deferred laboratory and microbiology Laboratory Tests 06/08/25 06:02 Test 8/22/25 06:02 Range/Units Serum Glucose 89 74-106 mg/dL Problem List Recurrent passing out event Seizure, less likely Syncope Bradycardia Heat stroke on 06/07/2025, unlikely, (he just came out of the house) Assessment/Plan Monitoring Supportive treatment Telemetry EEG Ativan for seizure breakthrough D/C Keppra 500 mg b.i.d. for the time being Common seizure triggered fracture discussed Avoid sleep deprivation No alcohol, street drug, He has been advised not to drive and he is cleared DMV report in the chart Cardiology on case More recommendation per clinical course This medical document was created using an electronic medical record system with [employer] dictation system. Although this document has been carefully reviewed, there may still be some phonetic and typographical errors. These areas are purely typographical due to imperfections of the software programs, and do not reflect any compromise in the patient's medical care Prognosis poor Plan discussed with: Patient, Other SHAHANA IRELAND MD Jun 09, 2025 20:00
[2025-06-09 21:04] LABS: Urine Protein, UAD TRACE (Negative)
[2025-06-09 21:14] LABS: Cannabinoid Screen, Urine Pos (NEGATIVE)
[2025-06-09 21:24] LABS: Amphetamine Screen, Urine Neg (NEGATIVE); Barbiturate Scree,Urine Neg (NEGATIVE); Benzodiazephine Screen, Urine Neg (NEGATIVE); Cocaine Screen, Urine Pos (NEGATIVE); Opiate Scree,Urine Neg (NEGATIVE); Phencyclidine Screen, Urine Neg (NEGATIVE)
[2025-06-10 01:00] VITALS: BP 126/64; PULSE 56; RESP 17; TEMP 98.1; O2SAT 98
[2025-06-10 05:00] VITALS: BP 108/62; PULSE 53; RESP 18; TEMP 97.7; O2SAT 98
[2025-06-10 08:30] VITALS: BP 102/50; PULSE 68; RESP 14; TEMP 98.6; O2SAT 97
[2025-06-10 12:07] VITALS: TEMP 37
--- NOTE | 2025-06-10 13:15 | DVHPN2 ---
Eyes: No Pain, No Vision change, No Conjunctivae inflammation, No Eyelid inflammation, No Other, No Redness ENT: No Ear pain, No Ear discharge, No Nose pain, No Nose discharge, No Nose congestion, No Mouth pain, No Mouth swelling, No Throat pain, No Throat swelling, No Other Cardiovascular: No Chest Pain, No Palpitations, No Orthopnea, No Paroxysmal Noc. Dyspnea, No Edema, No Lt Headedness, No Other Respiratory: No Cough, No Dry, No Shortness of breath, No SOB with excertion, No Wheezing, No Hemoptysis, No Pleuritic Pain, No Sputum, No Other Gastrointestinal: Nausea, Vomiting; No Abdominal Pain, No Diarrhea, No Constipation, No Melena, No Hematochezia, No Other Genitourinary: No Dysuria, No Frequency, No Incontinence, No Hematuria, No Retention, No Other Musculoskeletal: No other, No neck pain, No shoulder pain, No arm pain, No back pain, No hand pain, No leg pain, No foot pain Skin: No Rash, No Lesions, No Jaundice, No Bruising, No Other Objective Vitals Vital Signs Date Time Temp Pulse Resp B/P (MAP) Pulse Ox O2 Delivery O2 Flow Rate FiO2 06/10/25 08:30 98.6 68 14 102/50 (67) 97 98.6 06/09/25 20:00 Room Air* 0 21 Intake/Output Intake and Output 06/10/25 07:00 Intake Total 1125 ml Balance 1125 ml Intake Oral 1125 ml # Voids 4 Medications Current Medications Medications Dose Ordered Sig/Luis Armando Route Start Time Stop Time Status Last Admin Dose Admin Sodium Chloride 1,000 ml @ 60 mls/hr [id number] IV 06/07/25 21:45 06/09/25 08:38 60 MLS/HR Acetaminophen/ Hydrocodone Bitart 1 tab Q4HP PRN PO 06/07/25 21:45 06/07/25 22:16 1 TAB Ondansetron HCl 4 mg Q4HP PRN IV 06/07/25 21:45 Docusate Sodium 100 mg BIDPRN PRN PO 06/07/25 21:45 Acetaminophen 650 mg Q6HP PRN PO 06/07/25 21:45 06/07/25 22:16 650 MG Nitroglycerin 0.4 mg Q5MINP PRN SL 06/07/25 23:30 Morphine Sulfate 2 mg Q30M PRN IV 06/07/25 23:30 Lorazepam 1 mg Q5MINP PRN IV 06/08/25 21:30 Atropine Sulfate 0.25 mg Q2HP PRN IV 06/09/25 00:45 Laboratory Results Laboratory Tests 06/08/25 06:02 Urinalysis Test 06/09/25 20:53 Urine Color Yellow (Yellow) Urine Clarity Turbid (Clear) H Urine pH 6.0 (5.0-9.0) Urine Specific [place] 1.021 (1.001-1.035) Urine Protein Trace (Negative) H Urine Ketones 1+ (Negative) H Urine Blood Negative /uL (Negative) Urine Nitrite Negative (Negative) Urine Bilirubin Negative (Negative) Urine Urobilinogen 4 mg/dL (Negative) H Urine Leukocyte Esterase Negative /uL (Negative) Urine RBC 1 /hpf (0 - 3) Urine Microscopic WBC 2 /HPF (0-3) Urine Squamous Epithelial Cells Few /hpf (<5) Urine Bacteria None seen /hpf (None Seen) Urine Mucus Many (None Seen) Urine Glucose Normal mg/dL (Normal) LORRAINE BUITRAGO MD Jun 10, 2025 13:15
[2025-06-10 13:24] VITALS: BP 111/60; PULSE 58; RESP 14; TEMP 97.6; O2SAT 95
--- NOTE | 2025-06-11 11:14 | DVHDS2 ---
Discharge Summary Date of Admission Jun 07, 2025 at 23:21 Date of Discharge: Jun 10, 2025 Admitting Diagnosis Seizure disorder Metabolic encephalopathy Generalized weakness Labs/Diagnostic Data: Laboratory Results Test 06/09/25 20:53 06/09/25 10:30 06/09/25 10:04 06/08/25 06:02 Urine Color Yellow (Yellow) Urine Clarity Turbid (Clear) Urine pH 6.0 (5.0-9.0) Urine Specific [place] 1.021 (1.001-1.035) Urine Protein Trace (Negative) Urine Ketones 1+ (Negative) Urine Blood Negative /uL (Negative) Urine Nitrite Negative (Negative) Urine Bilirubin Negative (Negative) Urine Urobilinogen 4 mg/dL (Negative) Urine Leukocyte Esterase Negative /uL (Negative) Urine RBC 1 /hpf (0 - 3) Urine Microscopic WBC 2 /HPF (0-3) Urine Squamous Epithelial Cells Few /hpf (<5) Urine Bacteria None seen /hpf (None Seen) Urine Mucus Many (None Seen) Urine Glucose Normal mg/dL (Normal) Urine Opiates Screen Neg (NEGATIVE) Urine Fentanyl Screen Neg (NEGATIVE) Urine Barbiturates Screen Neg (NEGATIVE) Urine Phencyclidine Screen Neg (NEGATIVE) Urine Amphetamines Screen Neg (NEGATIVE) Urine Benzodiazepines Screen Neg (NEGATIVE) Urine Cocaine Screen Pos (NEGATIVE) Urine Cannabinoids Screen Pos (NEGATIVE) Thyroid Stimulating Hormone (TSH) 0.73 uIU/mL (0.55-4.78) Hemoglobin A1c 5.0 % A1C (<5.7) Magnesium Level 1.9 mg/dL (1.6-2.6) Triglycerides Level 90 mg/dL (< 150) Cholesterol Level 127 mg/dL (< 200) LDL Cholesterol 54 mg/dL (< 100) HDL Cholesterol 55 mg/dL (40-59) White Blood Count 7.3 10^3/uL (4.4-10.8) Red Blood Count 4.58 10^6/uL (4.5-5.90) Hemoglobin 14.4 g/dL (13.5-17.5) Hematocrit 43.1 % (41.0-53.0) Mean Corpuscular Volume 94.1 fL (80.0-100.0) Mean Corpuscular Hemoglobin 31.4 pg (28.0-32.0) Mean Corpuscular Hemoglobin Concent 33.4 g/dL (32.0-36.0) Red Cell Distribution Width 14.7 % (11.8-14.3) Platelet Count 208 10^3/uL (140-450) Mean Platelet Volume 8.6 fL (6.9-10.8) Neutrophils (%) (Auto) 57.8 % (37.0-80.0) Lymphocytes (%) (Auto) 32.2 % (10.0-50.0) Monocytes (%) (Auto) 8.7 % (0.0-12.0) Eosinophils (%) (Auto) 1.0 % (0.0-7.0) Basophils (%) (Auto) 0.3 % (0.0-2.0) Neutrophils # (Auto) 4.2 10 ^3/uL (1.6-8.6) Lymphocytes # (Auto) 2.4 10 ^3/uL (0.4-5.4) Monocytes # (Auto) 0.6 10 ^3/uL (0-1.3) Eosinophils # (Auto) 0.1 10 ^3/uL (0-0.8) Basophils # (Auto) 0 10 ^3/uL (0-0.2) Nucleated Red Blood Cells 0.3 % Sodium Level 142 mmol/L (136-145) Potassium Level 4.3 mmol/L (3.5-5.1) Chloride Level 111 mmol/L (98-107) Carbon Dioxide Level 28 mmol/L (20-31) Anion Gap 3 (5-15) Blood Urea Nitrogen < 5 mg/dL (9-23) Creatinine 1.16 mg/dL (0.700-1.30) Glomerular Filtration Rate Calc 83 mL/min (>90) BUN/Creatinine Ratio 4.3 (10.0-20.0) Serum Glucose 89 mg/dL (74-106) Calcium Level 8.7 mg/dL (8.7-10.4) Total Bilirubin 2.2 mg/dL (0.2-1.0) Aspartate Amino Transferase (AST) 27 U/L (13-40) Alanine Aminotransferase (ALT) 14 U/L (7-40) Alkaline Phosphatase 64 U/L (46-116) Total Protein 6.1 g/dL (5.7-8.2) Albumin 4.0 g/dL (3.2-4.8) Test 06/07/25 15:49 POC Glucose 150 mg/dl (70-106) Other Laboratory Tests 06/08/25 06:02 Brief Hx & Hospital Course: This is a 39 years old male with past medical history of seizure come to [facility] Emergency Department with chief complaint of seizure. As reported by EMS, patient was in the vehicle when his daughter ran into the house telling on his father that he is in the car while he was not, but had a seizure. When EMS arrived on the scene, patient was diaphoretic, associated with nausea and vomiting. The patient found to have no seizure activity in the hospital however had a an episode of bradycardia with heart rate dropped down to the 40. Cardiology was consulted and evaluation was done. The patient had echo showed: lvef 70%. Sever concentric LVH . Normal rv function.Left atrium enlarged.No severe valve abnormalities noted . Cannot eval for AI, turbulent flow across LVOT. The patient had a CT head done showed no acute process. The MRI of the brain done showed no acute process. Patient is waiting for EEG. Neurology see the patient recommend Keppra 500 mg b.i.d. and also Ativan for breakthrough seizure. The patient grew inpatient while waiting for EEG done and he left against medical advice. Patient verbally understand the consequences of leaving hospital against medical advice which including more seizure and even but the patient is still wanted to leave so he left against medical advice. Physical exam done prior to against medical advice show HEENT: Normocephalic atraumatic pupils equal react to light and accommodation. Extraocular muscles intact, conjunctiva pink, oropharynx moist, no thrush, no exudate. Lymphatic: No lymphadenopathy Cardiovascular exam: S1, S2 was heard. No murmurs, rubs, gallops Lung: Clear on auscultation bilaterally, no wheeze, rale, rhonchi. GI: Abdominal soft, nondistended, nontenderness, positive bowel sounds. Extremity: No crepitus, cyanosis, edema. Pedal pulses present bilateral. Full range of motion. Skin: Normal turgor, no rash. Psych: Alert, oriented x3. Neurology: No focal deficits, cranial nerve II to XII grossly intact. This medical document was created using an electronic medical record system with [employer] computerized dictation system. Although this document has been carefully reviewed, there may still be some phonetic and typographical errors. These areas are purely typographical due to imperfections of the software programs, and do not reflect any compromise in the patient's medical care. Condition at Discharge: Guarded Final Diagnosis/Problems List Seizure disorder Metabolic encephalopathy Generalized weakness Medical Noncompliant Discharge Disposition: AMA Discharge Instruct/Medications No Active Prescriptions or Reported Meds Discharge Statement: "Patient was advised to return to the ER or call 911 if any headaches, dizziness, shortness of breath, chest pain, abdominal pain, bleeding, fevers, or worsening of medical condition. Patient was counseled about treatment plan, medications, possible side effects, patientverbalized understanding. All questions were answered to the best of my ability. This discharge took greater then 30 minutes in planning, reviewing documentation, counseling the patient, and discussing with other team members." ASSESSMENT ASSESSMENT Assessment Date of Service: Jun 10, 2025 Billing Provider: LORRAINE BUITRAGO MD Common Visit Codes: 70415-TRY/OBS DISCH DAY >30min LORRAINE BUITRAGO MD Jun 11, 2025 11:14
== END 2025-06-10 15:00 | disposition left against medical advice (07) | DRG 53 ==
LOC: EDBD 15:28 → EDUNIT# 15:28 → ER 15:28 → OVERFLOW 23:21 → TELE-CENTR 06-08 22:54
PROVIDERS: ADMIT Internal Medicine; ATTEND Internal Medicine
DX: G40.409 Other generalized epilepsy and epileptic syndromes, not intractable, without status epilepticus (principal); F17.210 Nicotine dependence, cigarettes, uncomplicated; Z53.29 Procedure and treatment not carried out because of patient's decision for other reasons; Z86.73 Personal history of transient ischemic attack (TIA), and cerebral infarction without residual deficits; Z79.899 Other long term (current) drug therapy
CPT/HCPCS: 36415; 80048; 80053; 80061; 80307; 81001; 82962; 83036; 83735; 84443; 85025; 93306; 96365; 96375; 99291; G0378; J2405

== ENCOUNTER 2025-07-19 11:50 | Emergency (ER) | payer MEDICAID ==
[~2025-07-19] VITALS: Ht 188 cm; Wt 100.0 kg
--- NOTE | 2025-07-19 11:55 | ED.PDOC ---
HPI (NEURO) HPI Comments This is a 39 year old male EMMANUELA presenting to the ED with chief complaint of seizure. EMS reports patient was witnessed by family at home this morning to have had a seizure on the couch, lasting 7 seconds before patient stopped and was unconscious. EMS relays patient has had three seizures in the past, but no formal diagnosis has been made and he is not currently on any medication. EMS states patient is currently diaphoretic and was post-ictal en route to the ED, now starting to become more alert upon arrival. EMS notes patient was bradycardic from 40-50s heart rate and hypotensive at 101/70, given 500mL of NS IV. Patient denies any headache, chest pain, SOB, oral trauma, dizziness, or weakness. Time Seen by MD: 11:52 Primary Care Provider: unknown Reviewed Notes: Nurses Notes, Inspection And Testing Supervisor Notes, Medications, Allergies Information Source: Patient, Emergency Med Personnel Mode of Arrival: EMS Severity: Moderate Timing: Hours Duration: Minutes Prehospital treatment: None Seizure Quality: Tonic-clonic Seizure Location: Generalized Onset: At rest Circumstances: Spontaneous Before: Normal During: LOC After: Confusion History of: Other (Previous seizures) Modifying factors: Nothing Past Medical History PAST MEDICAL HISTORY: Seizures Surgical History: Denies all surgeries Family History Family History: Reviewed,noncontributory to illness, Unknown Social History Smoker: Cigarettes Alcohol: Denies ETOH Use Drugs: Marijuana Lives In: Home Constitutional: reports: diaphoresis; denies: chills, fatigue, fever, malaise, sweats, weakness, others EENTM: denies: blurred vision, double vision, ear bleeding, ear discharge, ear drainage, ear pain, ear ringing, eye pain, eye redness, hearing loss, mouth pain, mouth swelling, nasal discharge, nose bleeding, nose congestion, nose pain, photophobia, tearing, throat pain, throat swelling, voice changes, others Respiratory: denies: cough, hemoptysis, orthopnea, SOB at rest, shortness of breath, SOB with excertion, stridor, wheezing, others Cardiovascular: denies: chest pain, dizzy spells, diaphoresis, Dyspnea on exertion, edema, irregular heart beat, left arm pain, lightheadedness, palpitations, PND, syncope, others Gastrointestinal: denies: abdomen distended, abdominal pain, blood streaked bowels, constipated, diarrhea, dysphagia, difficulty swallowing, hematemesis, melena, nausea, poor appetite, poor fluid intake, rectal bleeding, rectal pain, vomiting, others Genitourinary: denies: burning, dysuria, flank pain, frequency, hematuria, incontinence, penile discharge, penile sore, pain, testicle pain, testicle swelling, urgency, others Neurological: reports: seizure; denies: dizziness, fainting, headache, left sided numbness, left sided weakness, numbness, paresthesia, pre-existing deficit, right sided numbness, right sided weakness, speech problems, tingling, tremors, weakness, others Musculoskeletal: denies: back pain, gout, joint pain, joint swelling, muscle pain, muscle stiffness, neck pain, others Integumetry: denies: bruises, change in color, change in hair/nails, dryness, laceration, lesions, lumps, rash, wounds, others Allergic/Immunocompromised: denies: Difficulty Healing, Frequent Infections, Hives, Itching, others Hematologic/Lymphatic: denies: anemia, blood clots, easy bleeding, easy bruising, swollen glands, others Endocrine: denies: excessive hunger, excessive sweating, excessive thirst, excessive urination, flushing, intolerance to cold, intolerance to heat, unexplained weight gain, unexplained weight loss, others Psychiatric: denies: anxiety, bipolar disorder, depression, hopeless, panic disorder, schizophrenia, sleepless, suicidal, others All Other Systems: Reviewed and Negative Physical Exam General Appearance: No Apparent Distress HEENT: Normal ENT Inspection, Pharynx Normal, TMs Normal Neck: Full Range of Motion, Non-Tender, Normal, Normal Inspection Respiratory: Chest Non-Tender, Lungs Clear, No Accessory Muscle Use, No Respiratory Distress, Normal Breath Sounds Cardiovascular: No Edema, No JVD, No Murmur, No Gallop, Normal Peripheral Pulses, Regular Rate/Rhythm Breast Exam: Deferred Gastrointestinal: No Organomegaly, Non Tender, No Pulsatile Mass, Normal Bowel Sounds, Soft Genitalia: Deferred Pelvic: Deferred Rectal: Deferred Extremities: No calf tenderness, Normal capillary refill, Normal inspection, Normal range of motion, Non-tender, No pedal edema Musculoskeletal : Apperance: Normal Neurologic: Alert, residential electrician II-XII nml as Tested, No Motor Deficits, Normal Affect, Normal Mood, No Sensory Deficits Cerebellar Function: Normal Reflexes: Normal Skin: Dry, Normal Color, Warm Lymphatic: No Adenopathy Was a procedure done? Was a procedure done?: No Differential Diagnosis (SZ) Seizure: Epilepsy-Break Through, Epilepsy-Status X-Ray, Labs, Meds, VS Vital Signs Date Time Temp Pulse Resp B/P (MAP) Pulse Ox O2 Delivery O2 Flow Rate FiO2 07/19/25 13:20 97.8 66 14 108/73 (85) 100 97.8 07/19/25 11:55 98.7 50 18 101/61 98 98.7 Lab Test 07/19/25 12:08 Range/Units White Blood Count 4.8 4.4-10.8 10^3/uL Red Blood Count 4.76 4.5-5.90 10^6/uL Hemoglobin 15.1 13.5-17.5 g/dL Hematocrit 45.1 41.0-53.0 % Mean Corpuscular Volume 94.6 80.0-100.0 fL Mean Corpuscular Hemoglobin 31.6 28.0-32.0 pg Mean Corpuscular Hemoglobin Concent 33.4 32.0-36.0 g/dL Red Cell Distribution Width 14.7 H 11.8-14.3 % Platelet Count 247 140-450 10^3/uL Mean Platelet Volume 8.3 6.9-10.8 fL Neutrophils (%) (Auto) 48.2 37.0-80.0 % Lymphocytes (%) (Auto) 40.7 10.0-50.0 % Monocytes (%) (Auto) 9.0 0.0-12.0 % Eosinophils (%) (Auto) 1.5 0.0-7.0 % Basophils (%) (Auto) 0.6 0.0-2.0 % Neutrophils # (Auto) 2.3 1.6-8.6 10 ^3/uL Lymphocytes # (Auto) 1.9 0.4-5.4 10 ^3/uL Monocytes # (Auto) 0.4 0-1.3 10 ^3/uL Eosinophils # (Auto) 0.1 0-0.8 10 ^3/uL Basophils # (Auto) 0 0-0.2 10 ^3/uL Nucleated Red Blood Cells 0.2 % Sodium Level 141 136-145 mmol/L Potassium Level 3.8 3.5-5.1 mmol/L Chloride Level 109 H 98-107 mmol/L Carbon Dioxide Level 18 L 20-31 mmol/L Anion Gap 14 5-15 Blood Urea Nitrogen < 5 L 9-23 mg/dL Creatinine 1.21 0.700-1.30 mg/dL Glomerular Filtration Rate Calc 79 >90 mL/min BUN/Creatinine Ratio 4.1 L 10.0-20.0 Serum Glucose 117 H 74-106 mg/dL Calcium Level 8.9 8.7-10.4 mg/dL Plasma/Serum Blood Alcohol < 3.0 <10 mg/dL Current Medications Medications (Trade) Dose Ordered Sig/Luis Armando Route Start Time Stop Time Status Last Admin Levetiracetam 100 ml @ 400 mls/hr ONCE ONCE IV 07/19/25 12:00 07/19/25 12:14 DC 07/19/25 12:34 CT Head indicates: 1. No evidence of acute intracranial abnormality. The patient's CBC is within normal limits The chemistry panel is within normal limits. The patient was given Keppra 1000 mg IV piggyback The patient is being discharged on Keppra The patient has been on seizure precautions throughout the stay here in the ER The patient has been seizure-free The patient is discharged Images Reviewed?: Images reviewed and evaluated by me Time of 1ST Reevaluation: 13:41 Reevaluation 1ST: Improved Patient Education/Counseling: Diagnosis, Treatment, Prognosis, Need For Follow Up Family Education/Counseling: No Family Present Departure 1 Departure Time of Disposition: 13:42 Impression: Primary Impression: Seizure disorder Disposition: 01 HOME / SELF CARE / HOMELESS Condition: Fair e-Prescriptions No Active Prescriptions or Reported Meds Discharged With: Self Critical Care Note Critical Care Time?: No Stability Stability form required: No Heart Score Heart Score: Heart Score Response (Comments) Value History N/A 0 EKG N/A 0 Age N/A 0 Risk Factors N/A 0 Troponin N/A 0 Total 0 I personally scribed for LUCIA AIKEN MD ([email or web address]) on 07/19/25 at 11:55. Electronically submitted by Joaquin Chavez ([email or web address]). I personally scribed for LUCIA AIKEN MD ([email or web address]) on 07/19/25 at 13:30. Electronically submitted by Joaquin Chavez ([email or web address]). LUCIA AIKEN MD Jul 19, 2025 11:55
[2025-07-19] MEDS: levETIRAcetam 1000 mg/100ml 100 ML IV ONE (12:34)
[2025-07-19 12:37] LABS: Hematocrit 45.1 % (41.0-53.0); Hemoglobin 15.1 g/dL (13.5-17.5); Mean Corpuscular Hemoglobin 31.6 pg (28.0-32.0); Mean Corpuscular Volume 94.6 fL (80.0-100.0); Nucleated Red Blood Cells % 0.2 %
[2025-07-19 12:41] VITALS: PULSE 67; RESP 13; O2SAT 99
[2025-07-19 12:44] LABS: Potassium 3.8 mmol/L (3.5-5.1); Sodium 141 mmol/L (136-145)
[2025-07-19 12:45] LABS: Anion Gap 14 (5-15)
[2025-07-19 12:46] LABS: Calcium 8.9 mg/dL (8.7-10.4)
[2025-07-19 12:47] LABS: Carbon Dioxide 18 mmol/L (20-31); Chloride 109 mmol/L (98-107)
[2025-07-19 12:50] LABS: BUN/Creatinine Ratio 4.1 (10.0-20.0); Blood Urea Nitrogen < 5 mg/dL (9-23); Glucose 117 mg/dL (74-106)
--- NOTE | 2025-07-19 13:11 | DVH ---
EXAM: CT HEAD WITHOUT CONTRAST INDICATION: Seizure TECHNIQUE: CT of the head without intravenous contrast. Coronal and sagittal reformatted images are s ubmitted. Radiation Dose : 1. Head: CT Dose: CTDI volume is 64.3 mGy. Dose-length product is 1265.5 mGy*cm The dose indicators for CT are the volume Computed Tomography (CT) Dose Index (CTDIvol) and the Dose Length Product (DLP), and are measured in units of mGy and mGy-cm, respectively. These indicators are not patient dose, but values generated from the CT scanner acquisition factors. The report includes radiation exposure data for exposures received during this examination. All CT scans at this medical facility are performed using dose modulation techniques as appropriate to a performed exam including the following: Automated exposure control was utilized; adjustment of the MA and/or KV according to patient size; and use of iterative reconstruction technique. COMPARISON: MRI BRAIN HEAD WO CONTRAST on DOS: 04/28/25, CT HEAD WITHOUT CONTRAST on DOS: 04/26/25, CT CERVICAL WITHOUT CONTRAST on DOS: 04/26/25 FINDINGS: There is no evidence of acute intracranial hemorrhage, extra-axial collection, mass effect, midline s hift, herniation or hydrocephalus. The ventricles, sulci and cisterns are age appropriate. The lanza-white differentiation is intact. The visualized paranasal sinuses and mastoid air cells are clear. No depressed calvarial fracture. The surrounding soft tissues are unremarkable. IMPRESSION: 1. No evidence of acute intracranial abnormality.
[2025-07-19] MEDS ORDERED: LEVE500T40 PO (13:43)
[2025-07-19 15:21] VITALS: BP 107/41; PULSE 48; RESP 15; TEMP 97.5; O2SAT 100
== END 2025-07-19 15:35 | disposition home or self-care (01) ==
LOC: EDSEX 11:50 → ER 11:50 → EDBD 11:50 → ER 15:35
DX: G40.909 Epilepsy, unspecified, not intractable, without status epilepticus (principal); F17.210 Nicotine dependence, cigarettes, uncomplicated
CPT/HCPCS: 36415; 70450; 80048; 80320; 82947; 85025; 96374; 99285; J1953